=== PATIENT | female | born 1965 | race Caucasian/White ===

== ENCOUNTER 2019-07-02 21:01 | Inpatient (IN) | payer BC ==
--- NOTE | 2019-07-02 21:17 | PDOC ---
Rapid Medical Evaluation Chief Complaint: Pain Time Seen by Provider: 07/02/19 21:09 Medical Evaluation: Allergies Allergy/AdvReac Type Severity Reaction Status Date / Time No Known Allergies Allergy Verified 07/02/19 21:09 07/02/19 21:11 Pt presents to the ER for edema to her legs and abdomen. Pt has history of liver disease. Pt was recently hospitalized in [facility]. Exam: 4+ pitting edema to the legs b/l, fluid wave present in abdomen Orders: labs, IV, EKG Pt to proceed to the ER for further evaluation Discharge Disposition - Diagnosis Edema Qualifiers: Edema type: unspecified Qualified Code(s): R60.9 - Edema, unspecified - Referrals - Patient Instructions - Post Discharge Activity
[2019-07-02 21:52] LABS: BASO % 0.2 % (0-2.0); EOS % 0.3 % (0-4.5); HEMATOCRIT 25.6 % (32.4-45.2); HEMOGLOBIN 8.3 GM/dL (10.7-15.3); LYMPH % 12.9 % (8-40); MCH 36.2 pg (25.7-33.7); MCHC 32.2 g/dl (32.0-36.0); MEAN CELL VOLUME 112.5 fl (80-96); MEAN PLT VOLUME 7.8 fl (7.5-11.1); MONO % 7.7 % (3.8-10.2); NEUT % 78.9 % (42.8-82.8); PLATELET COUNT 395 K/MM3 (134-434); RBC 2.28 M/mm3 (3.60-5.2); RDW 18.3 % (11.6-15.6); WHITE BLOOD COUNT 15.8 K/mm3 (4.0-10.0)
[2019-07-02 22:08] LABS: INR 1.34 (0.83-1.09); PROTHROMBIN TIME (PATIENT) 15.9 SEC (9.7-13.0)
[2019-07-02 22:23] LABS: ANISOCYTOSIS 2+; MACROCYTOSIS 3+; PLATELET ESTIMATE ADEQUATE
[2019-07-02 22:25] LABS: ALK PHOS 356 U/L (45-117); ANION GAP 9 MMOL/L (8-16); BILIRUBIN,TOTAL 2.5 mg/dL (0.2-1); CHLORIDE 100 mmol/L (98-107); CO2 29 mmol/L (21-32); CREATININE 0.6 mg/dL (0.55-1.3); GLUCOSE,RANDOM 98 mg/dL (74-106); N-TERMINAL BNP 225.2 pg/ml (5-125); POTASSIUM 3.5 mmol/L (3.5-5.1); SGOT/AST 215 U/L (15-37); SGPT/ALT 33 U/L (13-61); SODIUM 137 mmol/L (136-145); TOT PROT 6.3 g/dl (6.4-8.2)
--- NOTE | 2019-07-03 01:05 | PDOC ---
Attending Attestation - Resident Resident Name: Ricardo Jacques - ED Attending Attestation I have performed the following: I have examined & evaluated the patient, The case was reviewed & discussed with the resident, I agree w/resident's findings & plan - HPI HPI: 07/03/19 01:04 see resident hpi - Physicial Exam PE: 07/03/19 01:04 agree with resident exam - Medical Decision Making 07/03/19 01:04 54-year-old female with history of alcoholic cirrhosis complaining of worsening lower extremity edema and generalized weakness Patient states that she is not able to ambulate without assistance We will admit for PT evaluation
--- NOTE | 2019-07-03 01:22 | PDOC ---
History of Present Illness - General Chief Complaint: Edema Stated Complaint: ABD PAIN Time Seen by Provider: 07/02/19 21:09 History Source: Patient Exam Limitations: No Limitations - History of Present Illness Initial Comments: 54 y/o female presenting to [facility] ER complaining of worsening lower extremity swelling and difficulty ambulating. Pt reports a history of worsening alcoholic cirrhosis. Was recently hospitalized at [facility], but pt is unable to recall the results of any testing. Unable to provide any documentation. Expressed extreme frustration and concern that she is no longer able to walk without assistance. Denies chest pain but endorses SOB w/o cough or wheeze. Denies drinking EtOH in last two weeks. Past History - Travel Traveled outside of the country in the last 30 days: No Close contact w/someone who was outside of country & ill: No - Past Medical History Allergies/Adverse Reactions: Allergies Allergy/AdvReac Type Severity Reaction Status Date / Time No Known Allergies Allergy Verified 07/02/19 21:09 Home Medications: Ambulatory Orders Doxepin HCl [Sinequan -] 25 mg PO DAILY 07/03/19 Folic Acid - 1 mg PO DAILY 07/03/19 Levothyroxine [Synthroid -] 50 mcg PO DAILY 07/03/19 Albuterol Sulfate Inhaler - [Ventolin HFA Inhaler -] 2 inh PO Q4H PRN #1 inh Furosemide [Lasix] 40 mg PO DAILY #30 tablet 07/08/19 Lactulose [Kristalose] 20 gm PO BID PRN #30 packet 07/08/19 Nicotine Patch [Nicoderm Patch -] 1 patch TD DAILY #30 patch 07/08/19 Spironolactone [Aldactone] 25 mg PO DAILY #30 tablet 07/08/19 Thiamine HCl [Vitamin B-1] 100 mg PO DAILY #30 tablet 07/08/19 Asthma: No Cardiac Disorders: No COPD: No Diabetes: No GI Disorders: No Disorders: No HTN: No Hypercholesterolemia: Yes (DIET CONTROLLED) Kidney Stones: No Liver Disease: Yes (Alcohol Cirrhosis) Psychiatric Problems: Yes (Alcohol Use Disorder) Seizures: No - Surgical History Abdominal Surgery: No Appendectomy: No Cardiac Surgery: No Cholecystectomy: No Lung Surgery: No Neurologic Surgery: No Orthopedic Surgery: Yes (RT. KNEE SURGERY - 20 YRS. AGO) - Psycho Social/Smoking Cessation Hx Smoking History: Current every day smoker Have you smoked in the past 12 months: Yes Number of Cigarettes Smoked Daily: 20 Information on smoking cessation initiated: No 'Breaking Loose' booklet given: 08/31/14 Hx Alcohol Use: No Drug/Substance Use Hx: No Substance Use Type: Alcohol, Cocaine, Marijuana Hx Substance Use Treatment: Yes Review of Systems - Review of Systems Comments:: 10 point review of systems completed. All systems negative except as noted above. *Physical Exam - Vital Signs Last Vital Signs Temp Pulse Resp BP Pulse Ox 98.4 F 113 H 18 129/62 95 07/02/19 21:09 07/02/19 21:09 07/02/19 21:09 07/02/19 21:09 07/02/19 21:09 - Physical Exam General Appearance: Yes: Appropriately Dressed. No: Apparent Distress HEENT: positive: Normal Voice Neck: positive: Trachea midline, Supple Respiratory/Chest: positive: Lungs Clear, Normal Breath Sounds. negative: Respiratory Distress Cardiovascular: positive: Regular Rhythm, Regular Rate. negative: Murmur Gastrointestinal/Abdominal: positive: Distended (Mildly distended w/ fluid wave. ). negative: Tender, Pulsatile Mass Extremity: positive: Pedal Edema (Bilateral lower extremity edema) Integumentary: positive: Normal Color, Dry, Warm Neurologic: positive: Fully Oriented, Alert, Normal Mood/Affect ED Treatment Course - LABORATORY CBC & Chemistry Diagram: 07/07/19 08:20 07/07/19 08:20 - ADDITIONAL ORDERS Additional order review: Laboratory Results 07/02/19 07/02/19 21:40 21:40 PT with INR 15.90 H INR 1.34 H Sodium 137 Potassium 3.5 Chloride 100 Carbon Dioxide 29 Anion Gap 9 BUN 5.0 L Creatinine 0.6 Est GFR (CKD-EPI)AfAm 118.93 Est GFR (CKD-EPI)NonAf 102.61 Random Glucose 98 Calcium 9.0 Total Bilirubin 2.5 H AST 215 H ALT 33 Alkaline Phosphatase 356 H B-Natriuretic Peptide 225.2 H Total Protein 6.3 L Albumin 2.0 L 07/02/19 21:40 RBC 2.28 L MCV 112.5 H MCHC 32.2 RDW 18.3 H MPV 7.8 Neutrophils % 78.9 Lymphocytes % 12.9 Monocytes % 7.7 Eosinophils % 0.3 Basophils % 0.2 Medical Decision Making - Medical Decision Making 54 y/o female presenting with worsening lower extremity edema and inability to ambulate without assistance. Occurring in setting of worsening alcoholic cirrhosis. Afebrile. Vitals remarkable for tachycardia without hypotension. Normoxic on room air. Physical exam as described above. Ordered placed by RME prior to my arrival. Reviewed laboratory data. Noted transaminitis with AST > ALT. Also noted leukocytosis. Will admit the pt for further medical evaluation and PT evaluation as pt states she is unable to perform her ADLs. Ricardo Jacques M.D., PGY2 Emergency Medicine Resident Discharge - Discharge Information Problems reviewed: Yes Clinical Impression/Diagnosis: Edema Qualifiers: Edema type: unspecified Qualified Code(s): R60.9 - Edema, unspecified Condition: Improved Disposition: HOME - Follow up/Referral - Patient Discharge Instructions - Post Discharge Activity
[2019-07-03] MEDS ORDERED: ALBUTEROL SO4 2.5/IPRATROPIUM 0.5 INH SOL 3 ML VIAL.NEB. NEB ONE ×3 (01:24→01:34)
--- NOTE | 2019-07-03 01:41 | PN ---
Teaching Attending Note Name of Resident: Billy Ratliff ATTENDING PHYSICIAN STATEMENT I saw and evaluated the patient. I reviewed the resident's note and discussed the case with the resident. I agree with the resident's findings and plan as documented. SUBJECTIVE: 54-year-old woman, first time in this hospital, with a history of alcoholic liver cirrhosis presenting complaining of worsening lower extremity edema and generalized weakness. Patient was unable to ambulate without the assistance. Patient was never cooperative with interview and physical exam when I saw her and most of history was obtained from EMR. OBJECTIVE: Last Vital Signs Temp Pulse Resp BP Pulse Ox 98.5 F 110 H 20 115/75 92 L 07/03/19 01:03 07/03/19 01:30 07/03/19 01:30 07/03/19 01:30 07/03/19 01:30 GENERAL: Well developed, well nourished. Awake and alert. No acute distress. HEENT: Normocephalic, atraumatic. PERRLA, EOMI. No conjunctival pallor. Sclera are non- icteric. Moist mucous membranes. NECK: Supple. Full ROM. No JVD. Carotid pulses 2+ and symmetric, without bruits. No thyromegaly. No lymphadenopathy. CARDIOVASCULAR: Regular rate and rhythm. No murmurs, rubs, or gallops. Distal pulses are 2+ and symmetric. PULMONARY: No evidence of respiratory distress. Lungs clear to auscultation bilaterally. No wheezing, rales or rhonchi. ABDOMINAL: Soft. Non-tender. Distended abdomen No rebound or guarding. No organomegaly. Normoactive bowel sounds. MUSCULOSKELETAL Normal range of motion at all joints. No bony deformities or tenderness. No CVA tenderness. EXTREMITIES: 3+ pitting edema up to knees bilaterally SKIN: Warm and dry. Normal capillary refill. No rashes. No jaundice. PSYCHIATRIC: Cooperative. Good eye contact. Appropriate mood and affect. Abnormal Lab Results 07/02/19 07/02/19 07/02/19 21:40 21:40 21:40 WBC 15.8 H RBC 2.28 L Hgb 8.3 L Hct 25.6 L D MCV 112.5 H MCH 36.2 H RDW 18.3 H Absolute Neuts (auto) 12.4 H PT with INR 15.90 H INR 1.34 H ABG pH ABG pO2 at Pt Temp ABG HCO3 ABG O2 Sat (Measured) ABG Base Excess BUN 5.0 L Total Bilirubin 2.5 H AST 215 H Alkaline Phosphatase 356 H B-Natriuretic Peptide 225.2 H Total Protein 6.3 L Albumin 2.0 L 07/03/19 03:05 WBC RBC Hgb Hct MCV MCH RDW Absolute Neuts (auto) PT with INR INR ABG pH 7.51 H ABG pO2 at Pt Temp 62.8 L ABG HCO3 28.3 H ABG O2 Sat (Measured) 91.7 L ABG Base Excess 5.3 H BUN Total Bilirubin AST Alkaline Phosphatase B-Natriuretic Peptide Total Protein Albumin Imaging studies reviewed ASSESSMENT AND PLAN: 54-year-old woman with anasarca, fluid overload suspected secondary to liver cirrhosis allegedly from alcohol abuse. Rule out other causes of anasarca such as nephrotic syndrome, CHF related causes. Bilateral pedal edema, should rule out DVT. Should treat for EtOH withdrawal. Should obtain medical records from PCP in the morning. Leukocytosis with suspected abdominal ascitesshould rule out SBP at this time. Hypoalbuminemia likely secondary to underlying liver failure. [facility] and [facility] precautions CT of abdomen pelvis Furosemide 40 mg IV stat and then 40 twice daily Ceftriaxone 1 g IV stat and daily IR for diagnostic and therapeutic paracentesis Avoid hepatotoxins Ramon catheter I's and O's and daily weights Free water and salt restriction Transthoracic echo Lower extremity duplex to rule out DVT Urine analysis EtOH level Urine toxicology screen Hepatitis B and C serologies Tylenol level [facility] protocol Thiamine and folate supplementation Lorazepam taper #Anemiasuspect might be secondary to chronic disease versus EtOH given her macrocytosis. Send iron studies, ferritin, vitamin B12, TSH #Leukocytosis Monitor CBC off antibiotics at this time #DVT prophylaxisheparin subcutaneously
[2019-07-03] MEDS ORDERED: FUROSEMIDE 40 MG/4 ML INJECTABLE VIAL IVPUSH ONE (02:25)
[2019-07-03] MEDS ORDERED: THIAMINE HCL 100 MG TABLET (FP) PO ONE (02:31)
[2019-07-03] MEDS ORDERED: FOLIC ACID 1 MG TABLET (FP) PO ONE (02:32)
--- NOTE | 2019-07-03 02:52 | HP ---
CHIEF COMPLAINT: Worsening LE edema, SOB, abdominal bloating, and fatigue for the pat 6 months PCP: None HISTORY OF PRESENT ILLNESS: This is a 54 year old female with PMH significant for Alcoholic Cirrhosis, GERD , and hypothyroidism. She presented to the ER with complaints of worsening LE edema resulting in an inability to walk, SOB, abdominal bloating, and fatigue for the past 6 months. She has been hospitalized approximately 4 times over the past 6 months at [facility], and states that she was diagnosed with liver cirrhosis. She has been drinking for several years (she is unable to quantify and states that she has been drinking forever), and her last drink was Jun 13 2019. Before then, she would usually drink over 1 pint of vodka per day. She endorses nausea, SOB, orthopnea, light headedness, but no vomiting, diarrhea , constipation, chest pain, abdominal pain, dysuria, urinary urgency, urinary frequency, or hematuria. She admits to multiple episodes of hemetemesis, but states that she has not had any episodes in the past 6 months. Her SOB has been worsening progressively, and she admits to snoring as well as waking up at night with SOB. She has never been officialy diagnosed with apnea. She also states that she has had multiple falls over the past few years due to being intoxicated, but reports no recent falls or head trauma. Her diet has been erratic, and she claims to have missed meals for up to 10 days at a time. She has attempted detox in the past, and was admitted at [facility] in 2015 for alcohol, cannabis, and cocaine use, although she denies any other drug use at this time. She smokes a 1/2 pack per day, down from 1.5 pack previously. She endorses intermittent chills over the past few weeks, without any documented or subjective fevers. She also endorses progressive worsening SOB and orthopnea. She does not remember if she has ever had an echo. She denies ever having an endoscopy or colonoscopy done, although she was scheduled to receive a colonoscopy a few years ago, but there was an error with her appointment. ER course was notable for: (1) WBC 15.8 (2) H&H 8.3/25.6 (3) Ceftriaxone and Lasix started Recent Travel: denies PAST MEDICAL HISTORY: As listed in HPI PAST SURGICAL HISTORY: Denies Social History: As listed in HPI Allergies No Known Allergies Allergy (Verified 07/02/19 21:09) HOME MEDICATIONS: REVIEW OF SYSTEMS CONSTITUTIONAL: chills Absent: fever, chills, diaphoresis, generalized weakness, malaise, loss of appetite, weight change HEENT: Absent: rhinorrhea, nasal congestion, throat pain, throat swelling, difficulty swallowing, mouth swelling, ear pain, eye pain, visual changes CARDIOVASCULAR: Absent: chest pain, syncope, palpitations, irregular heart rate, lightheadedness , peripheral edema RESPIRATORY: SOB Absent: cough, shortness of breath, dyspnea with exertion, orthopnea, wheezing, stridor, hemoptysis GASTROINTESTINAL: nausea, bloating Absent: abdominal pain, abdominal distension, nausea, vomiting, diarrhea, constipation, melena, hematochezia GENITOURINARY: Absent: dysuria, frequency, urgency, hesitancy, hematuria, flank pain, genital pain MUSCULOSKELETAL: Absent: myalgia, arthralgia, joint swelling, back pain, neck pain SKIN: Absent: rash, itching, pallor HEMATOLOGIC/IMMUNOLOGIC: Absent: easy bleeding, easy bruising, lymphadenopathy, frequent infections ENDOCRINE: Absent: unexplained weight gain, unexplained weight loss, heat intolerance, cold intolerance NEUROLOGIC: Absent: headache, focal weakness or paresthesias, dizziness, unsteady gait, seizure, mental status changes, bladder or bowel incontinence PSYCHIATRIC: Absent: anxiety, depression, suicidal or homicidal ideation, hallucinations. PHYSICAL EXAMINATION Vital Signs - 24 hr 07/02/19 07/03/19 21:09 01:30 Temperature 98.4 F Pulse Rate 113 H Pulse Rate [ 110 H Right Radial] Respiratory 18 20 Rate Blood Pressure 129/62 Blood Pressure 115/75 [Left Arm] O2 Sat by Pulse 95 92 L Oximetry (%) GENERAL: AOx3, jaundiced HEAD: Normal with no signs of trauma. EYES: Pupils equal, round and reactive to light, extraocular movements intact, sclera icteric, conjunctiva clear. No lid lag. EARS, NOSE, THROAT: Ears normal, nares patent, oropharynx clear without exudates. Moist mucous membranes. NECK: Normal range of motion, supple without lymphadenopathy, JVD, or masses. LUNGS: Breath sounds equal, clear to auscultation bilaterally. No wheezes, and no crackles. No accessory muscle use. HEART: Regular rate and rhythm, systolic murmur 3/6 on RSB ABDOMEN: Soft, distended, non tender with fluid thrill UPPER EXTREMITIES: 2+ pulses, warm, well-perfused. No cyanosis. No clubbing. No peripheral edema. LOWER EXTREMITIES: B/L pitting edema 2+, no calf tenderness NEUROLOGICAL: Patient refused motor/sensory examination/ Tremor noticed when hands outstretched PSYCHIATRIC: Cooperative. Good eye contact. Appropriate mood and affect. SKIN: Warm, dry, normal turgor, no rashes or lesions noted, normal capillary refill. Laboratory Results - last 24 hr 07/02/19 07/02/19 07/02/19 21:40 21:40 21:40 WBC 15.8 H RBC 2.28 L Hgb 8.3 L Hct 25.6 L D MCV 112.5 H MCH 36.2 H MCHC 32.2 RDW 18.3 H Plt Count 395 D MPV 7.8 Absolute Neuts (auto) 12.4 H Neutrophils % 78.9 Lymphocytes % 12.9 Monocytes % 7.7 Eosinophils % 0.3 Basophils % 0.2 Nucleated RBC % 0 Hypochromia 1+ Platelet Estimate Adequate Platelet Comment Large platelets Polychromasia 1+ Anisocytosis 2+ Macrocytosis 3+ PT with INR 15.90 H INR 1.34 H Sodium 137 Potassium 3.5 Chloride 100 Carbon Dioxide 29 Anion Gap 9 BUN 5.0 L Creatinine 0.6 Est GFR (CKD-EPI)AfAm 118.93 Est GFR (CKD-EPI)NonAf 102.61 Random Glucose 98 Calcium 9.0 Total Bilirubin 2.5 H AST 215 H ALT 33 Alkaline Phosphatase 356 H B-Natriuretic Peptide 225.2 H Total Protein 6.3 L Albumin 2.0 L ASSESSMENT/PLAN: 54 year old female with PMH significant for Alcoholic Cirrhosis, GERD, and hypothyroidism. She presented to the ER with complaints of worsening LE edema resulting in an inability to walk, SOB, abdominal bloating, and fatigue for the past 6 months. Admitted for management of alcoholic cirrhosis. #Cirrhosis - 2/2 significant alcohol use - Child Powell: Class C, 10 points, 82% scotty operative mortality - Rosalie's Discriminant Function: 15.8, good prognosis (under 32, does not require steroids at this time) - MELD 13 with 6% 3 month mortality - Manage ascites with Lasix 80mg given, Ramon placed for Is and Os, KCl IV 20meq IV and 30meq PO given, 1L fluid restriction /24 hours - GI consult placed with Dr. Nguyen - Must r/o SBP in setting of fever, paracentesis order placed, Dr. Mg consulted, - CT AP pending, Abdomen US ordered - Doppler lower extremity ordered - Tylenol and Alcohol level ordered - Hepatitis panel ordered - B12 levels ordered #Cardiac workup - Worsening dyspnea might be component of CHF - Troponin ordered - EKG: no ST T wave changes - Echo ordered to assess cardiac function - BNP ordered - Lasix IV 80mg once for worsening edema with 30meq IV Kcl to prevent potassium depletion from diuretic use #EtOH abuse - Ativan protocol started - Thiamine PO given, avoiding fluids due to edema #Sleep apnea - STOP BANG 3 points (loud snoring, stops breathing during sleep, age > 50 - May consider sleep testing on DC #Leukocytosis - WBC 15.8 - Must r/o SBP in setting of fever, paracentesis order placed, Dr. Mg consulted - Cefrtiaxone 1gm given prophylactically - Blood, urine cx ordered #Anemia - H&H: 8.3/25.6 - Fe TIBC levels ordered - RBC smear ordered - May need transfusion if Hg drops under 8 #FEN - Fluid restriction 1L per day - K repleted, will continue to monitor - Salt restricted diet #DVT - Heparin SQ Visit type - Emergency Visit Emergency Visit: Yes ED Registration Date: 07/03/19 Care time: The patient presented to the Emergency Department on the above date and was hospitalized for further evaluation of their emergent condition. - New Patient This patient is new to me today: Yes Date on this admission: 07/03/19 - Critical Care Critical Care patient: No ATTENDING PHYSICIAN STATEMENT I saw and evaluated the patient. I reviewed the resident's note and discussed the case with the resident. I agree with the resident's findings and plan as documented. SUBJECTIVE: OBJECTIVE: ASSESSMENT AND PLAN:
[2019-07-03] MEDS ORDERED: LORazepam 1 MG TABLET PO PRN (03:12)
[2019-07-03 03:31] LABS: ARTERIAL BLD GAS O2 SATURATION 91.7 % (95-98); ARTERIAL BLOOD GAS BASE EXCESS 5.3 meq/l (-2-2); ARTERIAL BLOOD GAS PCO2 35.5 mmHg (35-45); ARTERIAL BLOOD GAS PO2 62.8 mmHg (80-100); ARTERIAL BLOOD GAS pH 7.51 (7.35-7.45)
[2019-07-03 03:35] LABS: ALLENS TEST POSITIVE
[2019-07-03] MEDS: KCL 10 MEQ IVPB 10 MEQ/100 ML INFUS.BAG IVPB SCH ×3 (03:55→05:49)
[2019-07-03 04:16] VITALS: BMI 31.6
[2019-07-03] MEDS: LORazepam 1 MG TABLET PO SCH ×4 (04:55→22:02)
[2019-07-03 05:20] LABS: EPI CELLS 5.3 /HPF (0-5/HPF); HYALINE CASTS 19 /lpf (0-8); URINE APPEARANCE TURBID; URINE BACTERIA 3.1 /hpf (NEGATIVE); URINE BILIRUBIN 2+ (NEGATIVE); URINE COLOR ORANGE; URINE GLUCOSE (UA) NEGATIVE (NEGATIVE); URINE KETONE NEGATIVE (NEGATIVE); URINE LEUK ESTERASE TRACE (NEGATIVE); URINE NITRITE POSITIVE (NEGATIVE); URINE PROTEIN NEGATIVE (NEGATIVE); URINE RBC 2 /hpf (0-4); URINE WBC 1 /hpf (0-5)
[2019-07-03] MEDS ORDERED: POTASSIUM CHLORIDE TABS 20 MEQ TABLET.ER (FP) PO ONE (05:23)
[2019-07-03] MEDS ORDERED: CEFTRIAXONE 1 GM in DEXTROSE 5%-WATER - 50 ML IVPB ONE (05:54)
[2019-07-03 09:37] LABS: COCAINE, UR NEGATIVE ng/ml (CUTOFF=300); METHADONE, UR NEGATIVE ng/ml (CUTOFF=300); OPIATES, URI NEGATIVE ng/ml (CUTOFF=300); PHENCYCLIDINE,URINE NEGATIVE ng/ml (CUTOFF=25); URINE AMPHETAMINES NEGATIVE ng/ml (CUTOFF=500); URINE BARBITURATES NEGATIVE ng/ml (CUTOFF=200); URINE BENZODIAZEPINES NEGATIVE ng/ml (CUTOFF=200)
[2019-07-03 09:58] LABS: BASO % 0.4 % (0-2.0); EOS % 0.5 % (0-4.5); HEMOGLOBIN 7.8 GM/dL (10.7-15.3); LYMPH % 15.2 % (8-40); MCH 36.7 pg (25.7-33.7); MCHC 32.4 g/dl (32.0-36.0); MEAN CELL VOLUME 113.1 fl (80-96); MONO % 7.7 % (3.8-10.2); NEUT % 76.2 % (42.8-82.8); PLATELET COUNT 367 K/MM3 (134-434); RBC 2.12 M/mm3 (3.60-5.2); RDW 18.4 % (11.6-15.6); WHITE BLOOD COUNT 14.8 K/mm3 (4.0-10.0)
--- NOTE | 2019-07-03 10:26 | PN ---
Teaching Attending Note ATTENDING PHYSICIAN STATEMENT I saw and evaluated the patient. I reviewed the resident's note and discussed the case with the resident. I agree with the resident's findings and plan as documented. SUBJECTIVE: OBJECTIVE: ASSESSMENT AND PLAN:
[2019-07-03 10:35] LABS: ALBUMIN 1.8 g/dl (3.4-5.0); BILIRUBIN,TOTAL 2.5 mg/dL (0.2-1); BLOOD UREA NITROGEN 5.2 mg/dL (7-18); CALCIUM 8.9 mg/dL (8.5-10.1); CREATININE 0.6 mg/dL (0.55-1.3); POTASSIUM 3.6 mmol/L (3.5-5.1)
[2019-07-03 10:53] LABS: IRON SERUM 18 ug/dL (50-175); TOTAL IRON BINDING CAPACITY 174 ug/dL (250-450)
[2019-07-03] MEDS ORDERED: CEFTRIAXONE 2 GM in DEXTROSE 5%-WATER 100 ML IVPB ONE (11:15)
--- NOTE | 2019-07-03 12:30 | PN ---
Physical Exam: SUBJECTIVE: Patient seen and examined at bedside. Pt tachy and hypoxic likely due to pulse ox not getting a read from all the edema. Pt asymptomatic no sob, cp, walks to bathroom but unstable gait 2/2 edema. OBJECTIVE: Vital Signs Period Temp Pulse Resp BP Sys/Cortez Pulse Ox Last 24 Hr 98.4 F-98.5 F 109-113 18-20 105-129/59-75 92-95 GENERAL: The patient is awake, alert, and fully oriented, in no acute distress. LUNGS: Breath sounds equal, clear to auscultation bilaterally, no wheezes, no accessory muscle use. HEART: Tachycardic 110 and regular rhythm, S1, S2 without murmur, rub or gallop. ABDOMEN: Soft, globose, positive fluid wave. EXTREMITIES: 2+ pulses, warm, well-perfused, no edema. NEUROLOGICAL: Cranial nerves II through XII grossly intact. Normal speech, gait not observed. PSYCH: Normal mood, normal affect. SKIN: Warm, dry, normal turgor, no rashes or lesions noted Laboratory Results - last 24 hr 07/02/19 07/02/19 07/02/19 21:40 21:40 21:40 WBC 15.8 H RBC 2.28 L Hgb 8.3 L Hct 25.6 L D MCV 112.5 H MCH 36.2 H MCHC 32.2 RDW 18.3 H Plt Count 395 D MPV 7.8 Absolute Neuts (auto) 12.4 H Neutrophils % 78.9 Lymphocytes % 12.9 Monocytes % 7.7 Eosinophils % 0.3 Basophils % 0.2 Nucleated RBC % 0 Hypochromia 1+ Platelet Estimate Adequate Platelet Comment Large platelets Polychromasia 1+ Anisocytosis 2+ Macrocytosis 3+ Retic Count PT with INR 15.90 H INR 1.34 H Anticoagulation Therapy Puncture Site ABG pH ABG pCO2 at Pt Temp ABG pO2 at Pt Temp ABG HCO3 ABG O2 Sat (Measured) ABG O2 Content ABG Base Excess Eldon Test O2 Delivery Device Oxygen Flow Rate Vent Mode Vent Rate Mechanical Rate Pressure Support Vent Sodium 137 Potassium 3.5 Chloride 100 Carbon Dioxide 29 Anion Gap 9 BUN 5.0 L Creatinine 0.6 Est GFR (CKD-EPI)AfAm 118.93 Est GFR (CKD-EPI)NonAf 102.61 Random Glucose 98 Calcium 9.0 Iron TIBC Iron Saturation Unsaturated IBC Total Bilirubin 2.5 H AST 215 H ALT 33 Alkaline Phosphatase 356 H Creatine Kinase 14 L Troponin I < 0.02 B-Natriuretic Peptide 225.2 H Total Protein 6.3 L Albumin 2.0 L Vitamin B12 Urine Color Urine Appearance Urine pH Ur Specific [place] Urine Protein Urine Glucose (UA) Urine Ketones Urine Blood Urine Nitrite Urine Bilirubin Urine Urobilinogen Ur Leukocyte Esterase Urine WBC (Auto) Urine RBC (Auto) Urine Casts (Auto) U Epithel Cells (Auto) Urine Bacteria (Auto) Opiates Screen Methadone Screen Barbiturate Screen Phencyclidine Screen Ur Amphetamines Screen MDMA (Ecstasy) Screen Benzodiazepines Screen Cocaine Screen U Marijuana (THC) Screen Alcohol, Quantitative 07/03/19 07/03/19 07/03/19 03:05 03:45 03:45 WBC RBC Hgb Hct MCV MCH MCHC RDW Plt Count MPV Absolute Neuts (auto) Neutrophils % Lymphocytes % Monocytes % Eosinophils % Basophils % Nucleated RBC % Hypochromia Platelet Estimate Platelet Comment Polychromasia Anisocytosis Macrocytosis Retic Count PT with INR INR Anticoagulation Therapy No Result Required. Puncture Site Right radial ABG pH 7.51 H ABG pCO2 at Pt Temp 35.5 ABG pO2 at Pt Temp 62.8 L ABG HCO3 28.3 H ABG O2 Sat (Measured) 91.7 L ABG O2 Content 9.5 ABG Base Excess 5.3 H Eldon Test Positive O2 Delivery Device Room air Oxygen Flow Rate No Result Required. Vent Mode No Result Required. Vent Rate No Result Required. Mechanical Rate No Result Required. Pressure Support Vent No Result Required. Sodium Potassium Chloride Carbon Dioxide Anion Gap BUN Creatinine Est GFR (CKD-EPI)AfAm Est GFR (CKD-EPI)NonAf Random Glucose Calcium Iron TIBC Iron Saturation Unsaturated IBC Total Bilirubin AST ALT Alkaline Phosphatase Creatine Kinase Troponin I B-Natriuretic Peptide Total Protein Albumin Vitamin B12 Urine Color [place] Urine Appearance Turbid Urine pH 5.0 Ur Specific Ravena 1.019 Urine Protein Negative Urine Glucose (UA) Negative Urine Ketones Negative Urine Blood Negative Urine Nitrite Positive H Urine Bilirubin 2+ H Urine Urobilinogen 1.0 Ur Leukocyte Esterase Trace Urine WBC (Auto) 1 Urine RBC (Auto) 2 Urine Casts (Auto) 19 U Epithel Cells (Auto) 5.3 Urine Bacteria (Auto) 3.1 Opiates Screen Methadone Screen Barbiturate Screen Phencyclidine Screen Ur Amphetamines Screen MDMA (Ecstasy) Screen Benzodiazepines Screen Cocaine Screen U Marijuana (THC) Screen Alcohol, Quantitative < 3 Active Medications Generic Name Dose Route Start Last Admin Trade Name Freq PRN Reason Stop Dose Admin Folic Acid 1 mg 07/03/19 10:45 Folic Acid - PO DAILY [facility] Furosemide 40 mg 07/03/19 10:45 Lasix Injection - IVPUSH DAILY [facility] Lorazepam 2 mg 07/03/19 05:00 07/03/19 04:55 Ativan - PO 07/03/19 23:01 2 mg 0500,1100,1700,2300 RODRIGO Administration Lorazepam 0.5 mg 07/05/19 05:00 Ativan - PO 07/05/19 23:01 Q6H RODRIGO Lorazepam 0.5 mg 07/05/19 00:00 Ativan - PO 07/06/19 00:00 Q4H PRN Symptoms of Withdrawal Lorazepam 0.5 mg 07/06/19 05:00 Ativan - PO 07/06/19 05:01 ONCE ONE Lorazepam 1 mg 07/04/19 05:00 Ativan - PO 07/04/19 23:01 0500,1100,1700,2300 RODRIGO Lorazepam 1 mg 07/03/19 03:12 Ativan - PO 07/05/19 00:00 Q4H PRN Symptoms of Withdrawal Pantoprazole Sodium 40 mg 07/03/19 10:45 Protonix Iv IVPUSH DAILY [facility] Propranolol HCl 10 mg 07/03/19 10:45 Inderal - PO TID [facility] Spironolactone 12.5 mg 07/03/19 10:45 Aldactone - PO DAILY [facility] Thiamine HCl 100 mg 07/03/19 10:45 Vitamin B1 - PO DAILY [facility] ASSESSMENT/PLAN: 54 year old female with PMH significant for Alcoholic Cirrhosis, GERD, and hypothyroidism. She presented to the ER with complaints of worsening LE edema resulting in an inability to walk, SOB, abdominal bloating, and fatigue for the past 6 months. Admitted for management of alcoholic cirrhosis. #Alcoholic liver Cirrhosis - 2/2 alcohol abuse - Child Powell: Class C, 10 points, 82% scotty operative mortality - Maddrey's Discriminant Function: 15.8, suggesting no need for steroids - MELD 13 with 6% 3 month mortality - Manage ascites with Lasix 40mg IVP daily, 12.5 aldactone now, and propanolol 10TID for portal HTN reduction - Lactulose 20BID for HE mgmt, MRI triphasic abdomen for ?polyp in GB per GI - pt should follow up in liver transplant center. - d/c Ramon - aldactone 100 daily (per GI but order has not been put in yet) should help improve the hypokalemia as well. - GI consult placed with Dr. Nguyen for assesment of anemia which is chronic given iron studies and pt has hx of hematemsis will need EGD to r/o varices and stool occult for blood and rectal exam showing brown stool, BUN low could be due to malnourishment (will order pre-albumin to assess) vs dehydration but low likelihood for upper GI bleed at this time. - Protonix 40 daily - d/c'd rocephin 2g daily given SBP ruled out - ammonia level, pre-albumin, folate, thiamine - Doppler lower extremity negative - Hepatitis panel ordered - B12 levels high which is not characteristic of alcoholic cirrhosis but was recently at [facility] and potentially received treatment there. #Cardiac workup - Worsening dyspnea might be component of CHF - Troponin ordered - EKG: no ST T wave changes - Echo ordered to assess cardiac function - BNP ordered - Lasix IV 80mg once for worsening edema with 30meq IV Kcl to prevent potassium depletion from diuretic use #EtOH abuse - Ativan protocol started - Thiamine PO given, avoiding fluids due to edema #Sleep apnea - STOP BANG 3 points (loud snoring, stops breathing during sleep, age > 50 - May consider sleep testing on DC #Leukocytosis - WBC 15.8 - Must r/o SBP in setting of fever, paracentesis order placed, Dr. Mg consulted - Cefrtiaxone 1gm given prophylactically - Blood, urine cx ordered #Anemia - H&H: 8.3/25.6 - Fe TIBC levels ordered - RBC smear ordered - May need transfusion if Hg drops under 8 #FEN - Fluid restriction 1L per day - K repleted, will continue to monitor - Salt restricted diet #DVT - SCD'S in setting of ?bleed Visit type - Emergency Visit Emergency Visit: Yes ED Registration Date: 07/03/19 Care time: The patient presented to the Emergency Department on the above date and was hospitalized for further evaluation of their emergent condition. - New Patient This patient is new to me today: Yes Date on this admission: 07/04/19 - Critical Care Critical Care patient: No - Discharge Referral Referred to [facility] No ATTENDING PHYSICIAN STATEMENT I saw and evaluated the patient. I reviewed the resident's note and discussed the case with the resident. I agree with the resident's findings and plan as documented. SUBJECTIVE: OBJECTIVE: ASSESSMENT AND PLAN:
[2019-07-03] MEDS ORDERED: DEXTROSE 5%-WATER 100 ML IVPB ONE (13:06)
[2019-07-03] MEDS ORDERED: PT OWN MED DRAWER 7, Y5N ONE (13:07)
[2019-07-03] MEDS: FUROSEMIDE 40 MG/4 ML INJECTABLE VIAL IVPUSH SCH (13:12)
[2019-07-03] MEDS: PANTOPRAZOLE SODIUM 40 MG VIAL IVPUSH SCH (13:12)
[2019-07-03] MEDS: FOLIC ACID 1 MG TABLET (FP) PO SCH (13:13)
[2019-07-03] MEDS: SPIRONOLACTONE 25 MG TABLET (FP) PO SCH (13:13)
[2019-07-03] MEDS: THIAMINE HCL 100 MG TABLET (FP) PO SCH (13:14)
[2019-07-03] MEDS ORDERED: HEPARIN NA (PORCINE) 5,000 UNITS/ML 1ML VIAL SQ SCH (14:00)
--- NOTE | 2019-07-03 14:01 | ECHO ---
Name: RIVER DEL ANGEL Exam:Adult Echocardiogram Study Date: 07/03/2019 10:15 AM Age: 54 yrs Height: 61 in Weight: 170 lb BSA: 1.8 m2 MMode/2D Measurements & Calculations IVSd: 0.84 cm Ao root diam: 3.2 cm LVIDd: 4.2 cm LA dimension: 3.7 cm LVIDs: 3.1 cm ACS: 1.9 cm LVPWd: 1.2 cm EDV(Teich): 79.7 ml LVOT diam: 2.1 cm ESV(Teich): 36.5 ml Doppler Measurements & Calculations MV E max tung: 122.8 cm/sec Ao V2 max: 181.3 cm/sec MV A max tung: 116.6 cm/sec Ao max P.2 mmHg MV E/A: 1.1 Ao V2 mean: 130.8 cm/sec MV dec time: 0.18 sec Ao mean P.8 mmHg Ao V2 VTI: 35.9 cm MAIRA(I,D): 2.6 cm2 MAIRA(V,D): 2.6 cm2 LV V1 max P.2 mmHg SV(LVOT): 93.5 ml LV V1 mean P.1 mmHg LV V1 max: 133.9 cm/sec LV V1 mean: 94.9 cm/sec LV V1 VTI: 27.1 cm TR max tung: 225.8 cm/sec PA V2 max: 103.0 cm/sec TR max P.3 mmHg PA max P.2 mmHg PI end-d tung: 99.5 cm/sec Med Peak E' Tung: 7.3 cm/sec Med E/e': 16.8 Lat Peak E' Tung: 6.9 cm/sec Lat E/e': 17.7 Procedure A complete two-dimensional transthoracic echocardiogram was performed (2D, M-mode, Doppler and color flow Doppler). Left Ventricle The left ventricular size, thickness and function are normal. The left ventricular ejection fraction is normal. Ejection Fraction = 60-65%. The left ventricular wall motion is normal. Right Ventricle The right ventricle is normal in size and function. Atria Normal left and right atrial size and function. Mitral Valve There is no mitral regurgitation noted. Tricuspid Valve There is trace tricuspid regurgitation. There was insufficient TR detected to calculate RV systolic p ressure. Aortic Valve No hemodynamically significant valvular aortic stenosis. No aortic regurgitation is present. Pulmonic Valve There is no pulmonic valvular regurgitation. Great Vessels The aortic root is normal size. Pericardium/Pleura There is no pericardial effusion. Interpretation Summary The left ventricular size, thickness and function are normal The right ventricle is normal in size and function. There is trace tricuspid regurgitation. MD Westley Sage 07/03/2019 02:00 PM
--- NOTE | 2019-07-03 14:04 | CON.GI ---
Consult Consult Specialty:: GI Referred by:: Hospitalist Service Reason for Consultation:: Ascites - History of Present Illness Chief Complaint: "I was bloated up and couldn't walk" History of Present Illness: 54F admitted for evaluation of volume overload. Is an active alcoholic (last drink 1/3 per the patient). She drinks on average 1.5+ pints of alcohol daily. Has been to [facility] and most recently [facility]. There she had a paracentesis, possibly a month ago. She does not follow-up in terms of her medical care as an outpatient. She currently states that she is tired and would like to sleep without being interrupted. She denies abdominal pain, nausea, vomiting, rectal bleeding, melena. She has never had an EGD or colonoscopy. Her sister had liver disease from alcoholism and . There is no family history of colon cancer. - History Source History Provided By: Patient, Medical Record - Past Medical History Hepatobiliary: Yes: Cirrhosis (Alcohol induced) ...: No Psych: Yes: Addictions (Alcohol) Endocrine: Yes: Hypothyroidism Additional Medical History: Patient denies but did have admission medication list - Past Surgical History Past Surgical History: Yes: Joint Replacement (B/L THR, B/L knee surgery) Additional Surgical History: BTL - Alcohol/Substance Use Hx Alcohol Use: Yes History of Substance Use: reports: Cocaine (ex intranasal cocaine and smoked crack cocaine) - Smoking History Smoking history: Current every day smoker Have you smoked in the past 12 months: Yes Aproximately how many cigarettes per day: 20 - Social History Usual Living Arrangement: Alone ADL: Independent Occupation: Unemplyed Place of : [facility] History of Recent Travel: No Home Medications - Allergies Allergies/Adverse Reactions: Allergies Allergy/AdvReac Type Severity Reaction Status Date / Time No Known Allergies Allergy Verified 07/02/19 21:09 - Home Medications Home Medications: Ambulatory Orders Doxepin HCl [Sinequan -] 25 mg PO DAILY 07/03/19 Folic Acid - 1 mg PO DAILY 07/03/19 Levothyroxine [Synthroid -] 50 mcg PO DAILY 07/03/19 Nitrofurantoin Monohyd/M-Cryst [Macrobid -] 100 mg PO BID 07/03/19 Physical Exam-GI Vital Signs: Vital Signs Temperature 98.9 F 07/03/19 13:55 Pulse Rate 98 H 07/03/19 13:55 Respiratory Rate 20 07/03/19 13:55 Blood Pressure 107/54 L 07/03/19 13:55 O2 Sat by Pulse Oximetry (%) 92 L 07/03/19 01:30 Constitutional: Yes: Calm Eyes: No: Sclera Icterus Cardiovascular: Yes: Regular Rate and Rhythm. No: Murmur Respiratory: Yes: Diminished (at bases bilaterally with poor insp effort) Gastrointestinal Inspection: Yes: Distention ...Auscultate: Yes: Normoactive Bowel Sounds ...Palpate: Yes: Hepatomegaly, Soft. No: Tenderness ...Percussion: No: Tympanitic Edema: Yes (B/L LE edema) Neurological: Yes: Alert, Other (Somnolent) Labs: CBC, BMP 07/03/19 08:35 07/03/19 08:35 INR, PTT INR 1.34 (0.83-1.09) H 07/02/19 21:40 Problem List - Problems (1) Alcoholic cirrhosis of liver with ascites Assessment/Plan: In setting of active etoh abuse: Advise: Await fluid analysis. If no evidence of SBP D/C Abx Screening hepatitis A and B serologies (Hepatitis A/B panel) and hepatitis C antibody. If serologies not suggestive of immunity to hepatitis B, will need vaccination. Advised need for strict alcohol cessation. Explained that she will need to begin to take an active role in her medical care an responsibility for current medical issues. Explained if she continues to drink, she will likely from her continued alcohol use. Evaluation at liver transplant center as outpatient when acute issues are resolved Medication complaince: Start Lasix 40mg daily and Aldactone 100mg daily. 2g sodium controlled diet EGD and colonoscopy as outpatient Will need Q 6 month hepatic US to screen for HCC ? of polypoid lesion vs. sludge ball in GB on US. Follow-up with MRI. Can obtain MRI of abdomen with and without contrast (triple phase) Added Lactulose 20g BID for now. Code(s): K70.31 - ALCOHOLIC CIRRHOSIS OF LIVER WITH ASCITES
[2019-07-03] MEDS: LACTULOSE 20 GM/30 ML UDC (FOR ORAL USE ONLY) PO SCH ×2 (14:51→22:02)
--- NOTE | 2019-07-03 15:10 | EKG ---
Test Reason : Blood Pressure : / mmHG Vent. Rate : 103 BPM Atrial Rate : 103 BPM P-R Int : 150 ms QRS Dur : 082 ms QT Int : 358 ms P-R-T Axes : 062 014 064 degrees QTc Int : 468 ms SINUS TACHYCARDIA POSSIBLE LEFT ATRIAL ENLARGEMENT LOW VOLTAGE QRS CANNOT RULE OUT ANTEROSEPTAL INFARCT , AGE UNDETERMINED ABNORMAL ECG NO PREVIOUS ECGS AVAILABLE Confirmed by SEAMUS HER MD ([id number]) on 07/03/2019 3:10:03 PM Referred By: Confirmed By:SEAMUS HER MD
[2019-07-03 15:23] LABS: BF WBC & OTHER NUCLEATED CELLS 169 /mm3; BODY FLUID MACROPHAGES 47 %; BODY FLUID MESOTHELIAL 34 %
[2019-07-03] MEDS: NICOTINE 7 MG/24 HOURS TOPICAL PATCH TD SCH (22:52)
[2019-07-04] MEDS: LORazepam 1 MG TABLET PO SCH ×3 (06:38→23:33)
--- NOTE | 2019-07-04 07:08 | PN ---
Physical Exam: SUBJECTIVE: Patient seen and examined. Mental status worsened since yesterday. Pt AO X2. OBJECTIVE: Vital Signs Period Temp Pulse Resp BP Sys/Cortez Pulse Ox Last 24 Hr 98.3 F-100.3 F 87-98 - 100-123/45-54 90-92 GENERAL: The patient is awake, alert, and fully oriented, in no acute distress. NECK: supple. LUNGS: Breath sounds equal, clear to auscultation bilaterally, no wheezes, no crackles, no accessory muscle use. HEART: Regular rate and rhythm, S1, S2 without murmur, rub or gallop. ABDOMEN: Soft, nontender, globose EXTREMITIES: 2+ pulses, warm, well-perfused, 2+ pitting edema. NEUROLOGICAL: Cranial nerves II through XII grossly intact. Normal speech, gait not observed. PSYCH: poor affect, reduced mental status, responsive to commands and questions but at reduced haste. SKIN: Warm, dry, no rashes or lesions noted Laboratory Results - last 24 hr 07/03/19 07/03/19 07/03/19 03:45 07:00 08:35 WBC 14.8 H RBC 2.12 L Hgb 7.8 L Hct 24.0 L MCV 113.1 H MCH 36.7 H MCHC 32.4 RDW 18.4 H Plt Count 367 MPV 8.0 Absolute Neuts (auto) 11.2 H Neutrophils % 76.2 Lymphocytes % 15.2 Monocytes % 7.7 Eosinophils % 0.5 Basophils % 0.4 Nucleated RBC % 0 Retic Count Sodium Potassium Chloride Carbon Dioxide Anion Gap BUN Creatinine Est GFR (CKD-EPI)AfAm Est GFR (CKD-EPI)NonAf Random Glucose Calcium Iron TIBC Iron Saturation Unsaturated IBC Total Bilirubin AST ALT Alkaline Phosphatase Ammonia Total Protein Albumin Vitamin B12 U Pathogenic Cast Auto None seen Fluid Source Fluid WBC Fluid RBC Fluid Neutrophils Fluid Lymphocytes Pleural Macrophages Pleural Mesothelial Stool Occult Blood Opiates Screen Negative Methadone Screen Negative Acetaminophen Barbiturate Screen Negative Phencyclidine Screen Negative Ur Amphetamines Screen Negative MDMA (Ecstasy) Screen Negative Benzodiazepines Screen Negative Cocaine Screen Negative U Marijuana (THC) Screen Negative Hep C Ab Diagnostic 07/03/19 07/03/19 07/03/19 08:35 08:35 08:35 WBC RBC Hgb Hct MCV MCH MCHC RDW Plt Count MPV Absolute Neuts (auto) Neutrophils % Lymphocytes % Monocytes % Eosinophils % Basophils % Nucleated RBC % Retic Count 4.44 H Sodium 137 Potassium 3.6 Chloride 98 Carbon Dioxide 30 Anion Gap 9 BUN 5.2 L Creatinine 0.6 Est GFR (CKD-EPI)AfAm 118.93 Est GFR (CKD-EPI)NonAf 102.61 Random Glucose 75 Calcium 8.9 Iron 18 L TIBC 174 L Iron Saturation 10 L Unsaturated IBC 156 L Total Bilirubin 2.5 H AST 199 H ALT 31 Alkaline Phosphatase 314 H Ammonia Total Protein 6.0 L Albumin 1.8 L Vitamin B12 1014 H U Pathogenic Cast Auto Fluid Source Fluid WBC Fluid RBC Fluid Neutrophils Fluid Lymphocytes Pleural Macrophages Pleural Mesothelial Stool Occult Blood Opiates Screen Methadone Screen Acetaminophen Barbiturate Screen Phencyclidine Screen Ur Amphetamines Screen MDMA (Ecstasy) Screen Benzodiazepines Screen Cocaine Screen U Marijuana (THC) Screen Hep C Ab Diagnostic 07/03/19 07/03/19 07/03/19 11:50 12:48 12:48 WBC RBC Hgb Hct MCV MCH MCHC RDW Plt Count MPV Absolute Neuts (auto) Neutrophils % Lymphocytes % Monocytes % Eosinophils % Basophils % Nucleated RBC % Retic Count Sodium Potassium Chloride Carbon Dioxide Anion Gap BUN Creatinine Est GFR (CKD-EPI)AfAm Est GFR (CKD-EPI)NonAf Random Glucose Calcium Iron TIBC Iron Saturation Unsaturated IBC Total Bilirubin AST ALT Alkaline Phosphatase Ammonia Total Protein Albumin Vitamin B12 U Pathogenic Cast Auto Fluid Source Peritoneal Fluid WBC 169 Fluid RBC 604 Fluid Neutrophils 2 Fluid Lymphocytes 17 Pleural Macrophages 47 Pleural Mesothelial 34 Stool Occult Blood Opiates Screen Methadone Screen Acetaminophen <2.0 Barbiturate Screen Phencyclidine Screen Ur Amphetamines Screen MDMA (Ecstasy) Screen Benzodiazepines Screen Cocaine Screen U Marijuana (THC) Screen Hep C Ab Diagnostic <0.1 07/03/19 07/03/19 12:48 13:00 WBC RBC Hgb Hct MCV MCH MCHC RDW Plt Count MPV Absolute Neuts (auto) Neutrophils % Lymphocytes % Monocytes % Eosinophils % Basophils % Nucleated RBC % Retic Count Sodium Potassium Chloride Carbon Dioxide Anion Gap BUN Creatinine Est GFR (CKD-EPI)AfAm Est GFR (CKD-EPI)NonAf Random Glucose Calcium Iron TIBC Iron Saturation Unsaturated IBC Total Bilirubin AST ALT Alkaline Phosphatase Ammonia 17.30 Total Protein Albumin Vitamin B12 U Pathogenic Cast Auto Fluid Source Fluid WBC Fluid RBC Fluid Neutrophils Fluid Lymphocytes Pleural Macrophages Pleural Mesothelial Stool Occult Blood Negative Opiates Screen Methadone Screen Acetaminophen Barbiturate Screen Phencyclidine Screen Ur Amphetamines Screen MDMA (Ecstasy) Screen Benzodiazepines Screen Cocaine Screen U Marijuana (THC) Screen Hep C Ab Diagnostic Active Medications Generic Name Dose Route Start Last Admin Trade Name Freq PRN Reason Stop Dose Admin Folic Acid 1 mg 07/03/19 10:45 07/03/19 13:13 Folic Acid - PO 1 mg DAILY RODRIGO Administration Furosemide 40 mg 07/03/19 10:45 07/03/19 13:12 Lasix Injection - IVPUSH 40 mg DAILY RODRIGO Administration Lactulose 20 gm 07/03/19 14:15 07/03/19 22:02 Cephulac (Oral Use) PO 20 gm BID RODRIGO Administration Lorazepam 0.5 mg 07/05/19 05:00 Ativan - PO 07/05/19 23:01 Q6H RODRIGO Lorazepam 0.5 mg 07/05/19 00:00 Ativan - PO 07/06/19 00:00 Q4H PRN Symptoms of Withdrawal Lorazepam 0.5 mg 07/06/19 05:00 Ativan - PO 07/06/19 05:01 ONCE ONE Lorazepam 1 mg 07/04/19 05:00 07/04/19 06:38 Ativan - PO 07/04/19 23:01 1 mg 0500,1100,1700,2300 RODRIGO Administration Lorazepam 1 mg 07/03/19 03:12 Ativan - PO 07/05/19 00:00 Q4H PRN Symptoms of Withdrawal Nicotine 7 mg 07/03/19 22:49 07/03/19 22:52 Nicoderm Patch - TD 7 mg DAILY RODRIGO Administration Pantoprazole Sodium 40 mg 07/03/19 10:45 07/03/19 13:12 Protonix Iv IVPUSH 40 mg DAILY RODRIGO Administration Propranolol HCl 10 mg 07/03/19 10:45 07/04/19 06:38 Inderal - PO 10 mg TID RODRIGO Administration Spironolactone 12.5 mg 07/03/19 10:45 07/03/19 13:13 Aldactone - PO 12.5 mg DAILY RODRIGO Administration Thiamine HCl 100 mg 07/03/19 10:45 07/03/19 13:14 Vitamin B1 - PO 100 mg DAILY RODRIGO Administration ASSESSMENT/PLAN: 54 year old female with PMH significant for Alcoholic Cirrhosis, GERD, and hypothyroidism. She presented to the ER with complaints of worsening LE edema resulting in an inability to walk, SOB, abdominal bloating, and fatigue for the past 6 months. Admitted for management of alcoholic cirrhosis. #Alcoholic liver Cirrhosis - 2/2 alcohol abuse - Child Powell: Class C, 10 points, 82% scotty operative mortality - Maddrey's Discriminant Function: 15.8, suggesting no need for steroids - MELD 13 with 6% 3 month mortality - Manage ascites with Lasix 40mg IVP daily, 12.5 aldactone now, and propanolol 10TID for portal HTN reduction - Lactulose 20BID for HE mgmt, MRI triphasic abdomen for ?polyp in GB per GI - pt should follow up in liver transplant center. - d/c Ramon - aldactone 100 daily (per GI but order has not been put in yet) should help improve the hypokalemia as well. - GI consult placed with Dr. Luke for assesment of anemia and pt has hx of hematemsis will need EGD to r/o varices and stool occult for blood and rectal exam showing brown stool, BUN low could be due to malnourishment (will order pre -albumin to assess) vs dehydration. - EGD as o/p per GI. - Protonix 40 daily - d/c'd rocephin 2g daily given SBP ruled out - ammonia level, pre-albumin, folate, thiamine - Doppler lower extremity negative - Hepatitis panel ordered - B12 levels high which is not characteristic of alcoholic cirrhosis but was recently at [facility] and potentially received treatment there. Acute mental status changes - Neuro consulted (Haley)- agrees with CT head to assess structural abnormality - ammonia level - hypoxia pulm consulted to keep SaO2 >90% - wbc 17 today increased from yesterday - UA cx growing group D strep - placed on levaquin for ? urosepsis management. #Cardiac workup - no longer dyspneic - Echo- normal EF 60-65% no valvular abnormalities - Troponin ordered - EKG: no ST T wave changes - Lasix IV 80mg once for worsening edema with aldactone to improve K and diurese better. #EtOH abuse - Ativan protocol started - Thiamine PO given, avoiding fluids due to edema #Leukocytosis - WBC 17.8 - SBP ruled out - Blood, urine cx group d strep to date #Anemia - H&H: 8.3->7.3 - Fe TIBC levels showing anemia of chronic dx - RBC smear ordered - May need transfusion if Hg drops under 7 #FEN - Fluid restriction 1L per day - K repleted, will continue to monitor - 2g Salt restricted diet #DVT - SCD'S in setting of ?bleed Visit type - Emergency Visit Emergency Visit: Yes ED Registration Date: 07/03/19 Care time: The patient presented to the Emergency Department on the above date and was hospitalized for further evaluation of their emergent condition. - New Patient This patient is new to me today: No - Critical Care Critical Care patient: No - Discharge Referral Referred to [facility] Med P.C.: No ATTENDING PHYSICIAN STATEMENT I saw and evaluated the patient. I reviewed the resident's note and discussed the case with the resident. I agree with the resident's findings and plan as documented. SUBJECTIVE: OBJECTIVE: ASSESSMENT AND PLAN:
[2019-07-04] MEDS ORDERED: INSULIN (NOVOLOG) ASPART 100 UNITS/ML 10ML VIAL ONE (07:30)
[2019-07-04] MEDS ORDERED: INSULIN (LEVEMIR) 100 UNITS/ML UNITS SQ ONE (07:30)
[2019-07-04 08:06] LABS: EOS % 0.7 % (0-4.5); HEMATOCRIT 26.8 % (32.4-45.2); HEMOGLOBIN 8.7 GM/dL (10.7-15.3); LYMPH % 14.5 % (8-40); MCH 36.7 pg (25.7-33.7); MCHC 32.4 g/dl (32.0-36.0); MEAN PLT VOLUME 8.1 fl (7.5-11.1); MONO % 6.2 % (3.8-10.2); NEUT % 77.6 % (42.8-82.8); PLATELET COUNT 425 K/MM3 (134-434); RBC 2.37 M/mm3 (3.60-5.2); RDW 17.8 % (11.6-15.6); WHITE BLOOD COUNT 17.4 K/mm3 (4.0-10.0)
[2019-07-04 08:39] LABS: ALBUMIN 1.7 g/dl (3.4-5.0); ALBUMIN 1.8 g/dl (3.4-5.0); BILIRUBIN,TOTAL 2.6 mg/dL (0.2-1); BLOOD UREA NITROGEN 9.1 mg/dL (7-18); CALCIUM 8.9 mg/dL (8.5-10.1); CREATININE 0.6 mg/dL (0.55-1.3); POTASSIUM 3.7 mmol/L (3.5-5.1); PREALBUMIN 3.4 mg/dl (20-40); TOT PROT 6.1 g/dl (6.4-8.2); TOT PROT 6.2 g/dl (6.4-8.2)
[2019-07-04] MEDS: LACTULOSE 20 GM/30 ML UDC (FOR ORAL USE ONLY) PO SCH ×2 (09:33→22:41)
[2019-07-04] MEDS: NICOTINE 7 MG/24 HOURS TOPICAL PATCH TD SCH (09:35)
[2019-07-04] MEDS: PANTOPRAZOLE SODIUM 40 MG VIAL IVPUSH SCH (09:35)
[2019-07-04] MEDS: LEVOTHYROXINE NA 50 MCG TABLET (FP) PO SCH (09:35)
[2019-07-04] MEDS: FUROSEMIDE 40 MG/4 ML INJECTABLE VIAL IVPUSH SCH (09:35)
[2019-07-04] MEDS: SPIRONOLACTONE 25 MG TABLET (FP) PO SCH (09:36)
[2019-07-04] MEDS: FOLIC ACID 1 MG TABLET (FP) PO SCH (09:36)
[2019-07-04] MEDS: THIAMINE HCL 100 MG TABLET (FP) PO SCH (09:37)
[2019-07-04] MEDS ORDERED: NICOTINE 7 MG/24 HOURS TOPICAL PATCH TD SCH (10:00)
[2019-07-04] MEDS ORDERED: CEFTRIAXONE 2 GM in DEXTROSE 5%-WATER 100 ML IVPB SCH (10:00)
--- NOTE | 2019-07-04 10:19 | PN.GI ---
GI Progress Note Subjective: Laying slouched in bed. Does not want to move around much peritoneal fluid analysis not suggestive of SBP - Objective Vital Signs: Vital Signs Temperature 99.3 F 07/04/19 09:58 Pulse Rate 88 07/04/19 09:58 Respiratory Rate 19 07/04/19 09:58 Blood Pressure 98/44 L 07/04/19 09:58 O2 Sat by Pulse Oximetry (%) 92 L 07/03/19 21:00 Constitutional: Calm Eyes: No: Sclera Icterus Cardiovascular: Yes: Regular Rate and Rhythm Respiratory: Yes: Diminished (at bases R>L) Gastrointestinal Inspection: Yes: Distention ...Auscultate: Yes: Normoactive Bowel Sounds ...Palpate: Yes: Soft. No: Hepatomegaly, Splenomegaly, Tenderness ...Percussion: No: Tympanitic Edema: Yes Edema: LLE: 2+, RLE: 2+ Neurological: Yes: Alert, Oriented (x person, time). No: Asterixis Labs: CBC, BMP 07/04/19 07:42 07/04/19 07:42 INR, PTT INR 1.34 (0.83-1.09) H 07/02/19 21:40 Problem List - Problems (1) Alcoholic cirrhosis of liver with ascites Assessment/Plan: No SBP noted Diuresis as tolerated ETOH cessation Lactulose BID Lethargic at times, however no asterixis, normal ammonia level. Likely multifactorial including ativan she is receiving. Further evaluation per primary team. Incentive spirometry Leukocytosis, unclear etiology. No SBP, no focal abdominal findings. W/U per primary team. Code(s): K70.31 - ALCOHOLIC CIRRHOSIS OF LIVER WITH ASCITES
--- NOTE | 2019-07-04 11:22 | PN ---
Teaching Attending Note Name of Resident: Vicky Diaz ATTENDING PHYSICIAN STATEMENT I saw and evaluated the patient. I reviewed the resident's note and discussed the case with the resident. I agree with the resident's findings and plan as documented. Patient admits she is a chronic smoker; continues on NRT. Desaturated. Starting oral prednisone, nebs, and consulting pulmonary medicine. Discussed with Dr. Broussard who also suspects COPD. Echo normal so less likely dilated cmyo/HFpEF picture, no derangement in RVSP. She was difficult to get to respond this morning and is more interactive this PM. Given her obesity and Ativan use with detox we will hold her next doses, place her on neuro checks, check a CT, and have neuro see her. No asterixis and NH4 wnl; could be volitional but want to r/o any underlying neuro derrangement. Checked B12, TSH , etc. UCx with EF but not 100k CFU; can do a 3-5 day course of abx. Checking KWADWO eval as AM drowzyness could be related to this. 10 sys ROS done and negative aside from HPI. Echo with mild TR and normal LV and RV function VS labs imaging reviewed NAD AAO resting in bed RRR s1/2 no mgr NT ND +BS CN2-12 wnl, no fnd, slow to response in AM improved in PM CT head pending Paracentesis diagnostic results noted; Gram stain negative, NGTD on cx Bcx negative ASSESSMENT AND PLAN: Presents for AMS, decompensated cirrhosis, EtOH abuse. Less likely hepatic encephalopathy; improved mentation in PM with skipped Ativan dose. Eval for KWADWO , consulting psych given chronic issues communicated regarding her overall picture (alonside SW and CM). She desaturated today likely secondary to COPD exacerbation given ongoing tobacco abuse; unknown. Problem list: -AMS; less likely hepatic encephalopathy as no asterixis, negative NH4. Consider KWADWO, volitional component, endocrine/neuro abnl. Check TSH, etc. Consult neuro -COPD exacerbation; PRN O2. BDs, steroids, Pulm consult. Incentive hammad and tobacco cessasion -Tobacco Abuse; NRT -EtOH Cirrhosis +/- etoh hepatitis (transaminitis appreciated) -?UTI Full Code
[2019-07-04] MEDS ORDERED: ALBUTEROL SO4 0.083% IH SOL 2.5 MG/3 ML VIAL.NEB. NEB PRN (12:51)
--- NOTE | 2019-07-04 12:58 | PATH ---
Cytology Non-Gynecological Report Patient Name: [facility]. Rec. #: [id number] /Age/Gender: 1965 (Age: 54) / F Account: [id number] Location: [address] [place] [address]/[facility] Taken: 07/03/2019 Received: 07/03/2019 Reported: 07/04/2019 Physicians: Paul Mg M.D. Specimen(s) Received A: ASCITES BODY FLUID B: ASCITES BODY FLUID Clinical History Ascites Final Diagnosis A-B. BODY FLUID, ASCITES, PARACENTESIS: SATISFACTORY FOR EVALUATION. NO MALIGNANT CELLS IDENTIFIED. MESOTHELIAL CELLS, FEW MACROPHAGES, AND SCATTERED LYMPHOCYTES PRESENT. Comment: Recommend correlation with clinical findings and follow up as clinically indicated. Electronically Signed Lynda Levy M.D. Gross Description A. Approximately 60 cc of cloudy yellow fluid received fixed in 50% alcohol. One cytofunnel prepared and Pap stained. One cellblock prepared. B. Approximately 1800 cc of yellow fluid received fresh. One cytofunnel prepared and Pap stained. One cellblock prepared.
--- NOTE | 2019-07-04 13:19 | CON.PULM ---
Consult Consult Specialty:: PULMONARY Referred by:: DORON Reason for Consultation:: ASKED TO EVAL DUE TO COPD/ - History of Present Illness History of Present Illness: 54-year-old woman, first time in this hospital, with a history of alcoholic liver cirrhosis presenting complaining of worsening lower extremity edema and generalized weakness. Patient was unable to ambulate without the assistance. History obtained from chart. - History Source History Provided By: Patient, Medical Record Limitations to Obtaining History: Clinical Condition - Past Medical History Hepatobiliary: Yes: Cirrhosis (Alcohol induced) ...: No Psych: Yes: Addictions (Alcohol) Endocrine: Yes: Hypothyroidism Additional Medical History: Patient denies but did have admission medication list - Past Surgical History Past Surgical History: Yes: Joint Replacement (B/L THR, B/L knee surgery) Additional Surgical History: BTL - Alcohol/Substance Use Hx Alcohol Use: Yes History of Substance Use: reports: Cocaine (ex intranasal cocaine and smoked crack cocaine) - Smoking History Smoking history: Current every day smoker Have you smoked in the past 12 months: Yes Aproximately how many cigarettes per day: 20 - Social History Usual Living Arrangement: Alone ADL: Independent Occupation: Unemplyed History of Recent Travel: No Home Medications - Allergies Allergies/Adverse Reactions: Allergies Allergy/AdvReac Type Severity Reaction Status Date / Time No Known Allergies Allergy Verified 07/02/19 21:09 - Home Medications Home Medications: Ambulatory Orders Doxepin HCl [Sinequan -] 25 mg PO DAILY 07/03/19 Folic Acid - 1 mg PO DAILY 07/03/19 Levothyroxine [Synthroid -] 50 mcg PO DAILY 07/03/19 Family Medical History Family History: Unremarkable Review of Systems Unable to obtain ROS, reason: clinical condition Physical Exam Vital Sings: Vital Signs Temperature 99.3 F 07/04/19 09:58 Pulse Rate 86 07/04/19 10:15 Respiratory Rate 21 H 07/04/19 10:15 Blood Pressure 100/60 07/04/19 10:15 O2 Sat by Pulse Oximetry (%) 92 L 07/03/19 21:00 Constitutional: Yes: Other (lethargic) Eyes: Yes: EOM Intact HENT: Yes: Normocephalic Neck: Yes: Trachea Midline Cardiovascular: Yes: Regular Rate and Rhythm, S1, S2 Respiratory: Yes: Diminished Gastrointestinal: Yes: Soft, Ascites Edema: LLE: 2+, RLE: 2+ Neurological: Yes: Lethargy Labs: CBC, BMP 07/04/19 07:42 07/04/19 07:42 ABG Results ABG pH 7.51 (7.35-7.45) H 07/03/19 03:05 ABG pCO2 at Pt Temp 35.5 mmHg (35-45) 07/03/19 03:05 ABG pO2 at Pt Temp 62.8 mmHg (80-100) L 07/03/19 03:05 ABG HCO3 28.3 mmol/L (22-27) H 07/03/19 03:05 ABG O2 Sat (Measured) 91.7 % (95-98) L 07/03/19 03:05 ABG O2 Content 9.5 % vol 07/03/19 03:05 ABG Base Excess 5.3 meq/l (-2-2) H 07/03/19 03:05 rest reviewed Imaging - Results Chest X-ray: Report Reviewed, Image Reviewed Problem List - Problems (1) COPD (chronic obstructive pulmonary disease) Code(s): J44.9 - CHRONIC OBSTRUCTIVE PULMONARY DISEASE, UNSPECIFIED (2) Alcoholic cirrhosis of liver with ascites Code(s): K70.31 - ALCOHOLIC CIRRHOSIS OF LIVER WITH ASCITES (3) Cannabis dependence Code(s): F12.20 - CANNABIS DEPENDENCE, UNCOMPLICATED (4) Cocaine dependence Code(s): F14.20 - COCAINE DEPENDENCE, UNCOMPLICATED Assessment/Plan DECOMPENSATED CIRRHOTIC/ETOHISM COPD DUE TO CIGARETTES MANY YEARS/NOT IN EXACERBATION AT THIS TIME SMOKING CESSATION BRONCHODILATORS NEEDED O2 PRN TO KEEP SAT GREATER THAN 90% WILL NEED OUTPATIENT PFT'S TAPER PREDNISONE Kamala SAL MD
[2019-07-04] MEDS: predniSONE 20 MG TABLET (UD) PO SCH (13:39)
[2019-07-04 13:50] LABS: N-TERMINAL BNP 573.7 pg/ml (5-125)
--- NOTE | 2019-07-04 15:01 | CONSULT ---
Consult - text type - Consultation Consultation Note: Neurology CHIEF COMPLAINT: Worsening LE edema, SOB, abdominal bloating, and fatigue for the pat 6 months PCP: None HISTORY OF PRESENT ILLNESS: This is a 54 year old female with PMH significant for Alcoholic Cirrhosis, GERD , and hypothyroidism. She presented to the ER with complaints of worsening LE edema resulting in an inability to walk, SOB, abdominal bloating, and fatigue for the past 6 months. She has been hospitalized approximately 4 times over the past 6 months at [facility], and stated that she was diagnosed with liver cirrhosis. She has been drinking for several years (she is unable to quantify and stated that she has been drinking forever), and her last drink was Jun 13 2019. Before then, she would usually drink over 1 pint of vodka per day. She endorsed nausea, SOB, orthopnea, light headedness, but no vomiting, diarrhea, constipation, chest pain, abdominal pain, dysuria, urinary urgency, urinary frequency, or hematuria. She admited to multiple episodes of hemetemesis, but stated that she has not had any episodes in the past 6 months. Her SOB has been worsening progressively, and she admited to snoring as well as waking up at night with SOB. She has never been officialy diagnosed with apnea. She also stated that she has had multiple falls over the past few years due to being intoxicated, but reported no recent falls or head trauma. Her diet has been erratic, and she claims to have missed meals for up to 10 days at a time. She has attempted detox in the past, and was admitted at [facility] in 2015 for alcohol, cannabis, and cocaine use, although she denied any other drug use at this time. She smokes a 1/2 pack per day, down from 1.5 pack previously. She endorsed intermittent chills over the past few weeks, without any documented or subjective fevers. She also endorsed progressive worsening SOB and orthopnea. Lower extremities doppler reviewed and showed no evidence of deep venous thrombosis. I was consulted for mental status and during my evaluation she was able to toe me that she is in the hospital and correctly names [facility]. She was not able to give me the correct month and initially indicated it was March. She was able to tell me the correct year as well as the name of the president. I discussed with her having noncontrast head CT to evaluate for any significant structural abnormalities and she said she plans on leaving but was in agreement. I discussed with her that cognitive issues may be related to chronic alcohol use and she was in agreement with this as well. Recent Travel: denies PAST MEDICAL HISTORY: As listed in HPI PAST SURGICAL HISTORY: Denies Family History: HTN Social History: As listed in HPI REVIEW OF SYSTEMS CONSTITUTIONAL: chills Absent: fever, chills, diaphoresis, generalized weakness, malaise, loss of appetite, weight change HEENT: Absent: rhinorrhea, nasal congestion, throat pain, throat swelling, difficulty swallowing, mouth swelling, ear pain, eye pain, visual changes CARDIOVASCULAR: Absent: chest pain, syncope, palpitations, irregular heart rate, lightheadedness , peripheral edema RESPIRATORY: SOB Absent: cough, shortness of breath, dyspnea with exertion, orthopnea, wheezing, stridor, hemoptysis GASTROINTESTINAL: nausea, bloating Absent: abdominal pain, abdominal distension, nausea, vomiting, diarrhea, constipation, melena, hematochezia GENITOURINARY: Absent: dysuria, frequency, urgency, hesitancy, hematuria, flank pain, genital pain MUSCULOSKELETAL: Absent: myalgia, arthralgia, joint swelling, back pain, neck pain SKIN: Absent: rash, itching, pallor HEMATOLOGIC/IMMUNOLOGIC: Absent: easy bleeding, easy bruising, lymphadenopathy, frequent infections ENDOCRINE: Absent: unexplained weight gain, unexplained weight loss, heat intolerance, cold intolerance NEUROLOGIC: Absent: headache, focal weakness or paresthesias, dizziness, unsteady gait, seizure, mental status changes, bladder or bowel incontinence PSYCHIATRIC: Absent: anxiety, depression, suicidal or homicidal ideation, hallucinations. Allergies No Known Allergies Allergy (Verified 07/02/19 21:09) HOME MEDICATIONS: Ambulatory Orders Doxepin HCl [Sinequan -] 25 mg PO DAILY 07/03/19 Folic Acid - 1 mg PO DAILY 07/03/19 Levothyroxine [Synthroid -] 50 mcg PO DAILY 07/03/19 Active Medications Albuterol Sulfate (Ventolin 0.083% Nebulizer Soln -) 1 amp NEB Q4H PRN PRN Reason: SHORT OF BREATH/WHEEZING Albuterol/Ipratropium (Duoneb -) 1 amp NEB RQID RODRIGO Doxepin HCl (Sinequan -) 25 mg PO HS RODRIGO Folic Acid (Folic Acid -) 1 mg PO DAILY RODRIGO Last Admin: 07/04/19 09:36 Dose: 1 mg Furosemide (Lasix Injection -) 40 mg IVPUSH DAILY [facility] Last Admin: 07/04/19 09:35 Dose: 40 mg Levofloxacin (Levaquin 750 Mg Premixed Ivpb -) 750 mg in 150 mls @ 100 mls/hr IVPB DAILY [facility]; Protocol Last Admin: 07/04/19 13:39 Dose: 100 mls/hr Lactulose (Cephulac (Oral Use)) 20 gm PO BID [facility] Last Admin: 07/04/19 09:33 Dose: 20 gm Levothyroxine Sodium (Synthroid -) 50 mcg PO 0700 [facility] Last Admin: 07/04/19 09:35 Dose: 50 mcg Lorazepam (Ativan -) 0.5 mg PO Q6H [facility] Stop: 07/05/19 23:01 Lorazepam (Ativan -) 0.5 mg PO Q4H PRN PRN Reason: Symptoms of Withdrawal Stop: 07/06/19 00:00 Lorazepam (Ativan -) 0.5 mg PO ONCE ONE Stop: 07/06/19 05:01 Lorazepam (Ativan -) 1 mg PO 0500,1100,1700,2300 [facility] Stop: 07/05/19 05:01 Last Admin: 07/04/19 10:10 Dose: 1 mg Lorazepam (Ativan -) 1 mg PO Q4H PRN PRN Reason: Symptoms of Withdrawal Stop: 07/05/19 00:00 Nicotine (Nicoderm Patch -) 7 mg TD DAILY [facility] Last Admin: 07/04/19 09:35 Dose: 7 mg Pantoprazole Sodium (Protonix Iv) 40 mg IVPUSH DAILY [facility] Last Admin: 07/04/19 09:35 Dose: 40 mg Prednisone (Deltasone -) 60 mg PO DAILY [facility] Last Admin: 07/04/19 13:39 Dose: 60 mg Propranolol HCl (Inderal -) 10 mg PO TID [facility] Last Admin: 07/04/19 13:41 Dose: 10 mg Spironolactone (Aldactone -) 12.5 mg PO DAILY [facility] Last Admin: 07/04/19 09:36 Dose: 12.5 mg Thiamine HCl (Vitamin B1 -) 100 mg PO DAILY [facility] Last Admin: 07/04/19 09:37 Dose: 100 mg PHYSICAL EXAMINATION Vital Signs Period Temp Pulse Resp BP Sys/Cortez Pulse Ox Last 24 Hr 98.3 F-100.3 F 81-90 18-22 95-123/44-60 92 GENERAL: AOx3, jaundiced HEAD: Normal with no signs of trauma. EYES: Pupils equal, round and reactive to light, extraocular movements intact, sclera icteric, conjunctiva clear. No lid lag. EARS, NOSE, THROAT: Ears normal, nares patent, oropharynx clear without exudates. Moist mucous membranes. NECK: Normal range of motion, supple without lymphadenopathy, JVD, or masses. LUNGS: Breath sounds equal, clear to auscultation bilaterally. No wheezes, and no crackles. No accessory muscle use. HEART: Regular rate and rhythm, systolic murmur 3/6 on RSB ABDOMEN: Soft, distended, non tender with fluid thrill UPPER EXTREMITIES: 2+ pulses, warm, well-perfused. No cyanosis. No clubbing. No peripheral edema. LOWER EXTREMITIES: B/L pitting edema 2+, no calf tenderness NEUROLOGICAL: Patient refused motor/sensory examination/ Tremor noticed when hands outstretched PSYCHIATRIC: Cooperative. Good eye contact. Appropriate mood and affect. SKIN: Warm, dry, normal turgor, no rashes or lesions noted, normal capillary refill. CBCD WBC 17.4 K/mm3 (4.0-10.0) H 07/04/19 07:42 RBC 2.37 M/mm3 (3.60-5.2) L 07/04/19 07:42 Hgb 8.7 GM/dL (10.7-15.3) L 07/04/19 07:42 Hct 26.8 % (32.4-45.2) L 07/04/19 07:42 MCV 113.0 fl (80-96) H 07/04/19 07:42 MCHC 32.4 g/dl (32.0-36.0) 07/04/19 07:42 RDW 17.8 % (11.6-15.6) H 07/04/19 07:42 Plt Count 425 K/MM3 (134-434) 07/04/19 07:42 MPV 8.1 fl (7.5-11.1) 07/04/19 07:42 CMP Sodium 137 mmol/L (136-145) 07/04/19 07:42 Potassium 3.7 mmol/L (3.5-5.1) 07/04/19 07:42 Chloride 98 mmol/L (98-107) 07/04/19 07:42 Carbon Dioxide 32 mmol/L (21-32) 07/04/19 07:42 Anion Gap 6 MMOL/L (8-16) L 07/04/19 07:42 BUN 9.1 mg/dL (7-18) 07/04/19 07:42 Creatinine 0.6 mg/dL (0.55-1.3) 07/04/19 07:42 Random Glucose 77 mg/dL (74-106) 07/04/19 07:42 Calcium 8.9 mg/dL (8.5-10.1) 07/04/19 07:42 Total Bilirubin 2.6 mg/dL (0.2-1) H 07/04/19 07:42 AST 210 U/L (15-37) H 07/04/19 07:42 ALT 32 U/L (13-61) 07/04/19 07:42 Alkaline Phosphatase 322 U/L (45-117) H 07/04/19 07:42 Total Protein 6.1 g/dl (6.4-8.2) L 07/04/19 07:42 Albumin 1.7 g/dl (3.4-5.0) L 07/04/19 07:42 CARDIAC ENZYMES Creatine Kinase 15 U/L (26-192) L 07/03/19 03:45 Troponin I < 0.02 ng/ml (0.00-0.05) 07/03/19 03:45 ASSESSMENT/PLAN: This is a 54 year old female with PMH significant for Alcoholic Cirrhosis, GERD , and hypothyroidism. She presented to the ER with complaints of worsening LE edema resulting in an inability to walk, SOB, abdominal bloating, and fatigue for the past 6 months. She has been hospitalized approximately 4 times over the past 6 months at [facility], and stated that she was diagnosed with liver cirrhosis. She has been drinking for several years (she is unable to quantify and stated that she has been drinking forever), and her last drink was Jun 13 2019. Before then, she would usually drink over 1 pint of vodka per day. She endorsed nausea, SOB, orthopnea, light headedness, but no vomiting, diarrhea, constipation, chest pain, abdominal pain, dysuria, urinary urgency, urinary frequency, or hematuria. She admited to multiple episodes of hemetemesis, but stated that she has not had any episodes in the past 6 months. Her SOB has been worsening progressively, and she admited to snoring as well as waking up at night with SOB. She has never been officialy diagnosed with apnea. She also stated that she has had multiple falls over the past few years due to being intoxicated, but reported no recent falls or head trauma. I was consulted for mental status and during my evaluation she was able to toe me that she is in the hospital and correctly names [facility]. She was not able to give me the correct month and initially indicated it was March. She was able to tell me the correct year as well as the name of the president. I discussed with her having noncontrast head CT to evaluate for any significant structural abnormalities and she said she plans on leaving but was in agreement. I discussed with her that cognitive issues may be related to chronic alcohol use and she was in agreement with this as well. Monitor ammonia, GI follow up. Alcohol cessation would be the most important aspect to her treatment. Noncontrast head CT has been ordered, follow-up results. Monger thyroid levelas hypothyroidism can precipitate ccognitive impairment. Adequate hydration recommended, replenish electrotyles. Medical optimization.
[2019-07-04] MEDS: ALBUTEROL SO4 2.5/IPRATROPIUM 0.5 INH SOL 3 ML VIAL.NEB. NEB SCH ×2 (16:29→20:48)
[2019-07-04 17:06] LABS: BODY FLUID ALBUMIN 0.6 g/dL (Not Estab.)
[2019-07-04] MEDS: DOXEPIN HCL 25 MG CAPSULE PO SCH (22:37)
[2019-07-05] MEDS ORDERED: LORazepam 0.5 MG TABLET PO PRN
[2019-07-05] MEDS ORDERED: PT OWN MED DRAWER 7, Y5N ONE ×2 (05:56→14:50)
[2019-07-05] MEDS: LEVOTHYROXINE NA 50 MCG TABLET (FP) PO SCH (06:09)
[2019-07-05] MEDS: LORazepam 1 MG TABLET PO SCH (06:10)
[2019-07-05] MEDS: LORazepam 0.5 MG TABLET PO SCH ×4 (06:21→23:50)
[2019-07-05] MEDS: ALBUTEROL SO4 2.5/IPRATROPIUM 0.5 INH SOL 3 ML VIAL.NEB. NEB SCH ×4 (07:20→20:20)
[2019-07-05 07:55] LABS: HEMATOCRIT 23.1 % (32.4-45.2); HEMOGLOBIN 7.6 GM/dL (10.7-15.3); MCH 36.3 pg (25.7-33.7); MCHC 32.8 g/dl (32.0-36.0); MEAN CELL VOLUME 110.6 fl (80-96); PLATELET COUNT 355 K/MM3 (134-434); RBC 2.09 M/mm3 (3.60-5.2); RDW 17.7 % (11.6-15.6); WHITE BLOOD COUNT 13.4 K/mm3 (4.0-10.0)
[2019-07-05 09:15] LABS: ALBUMIN 1.6 g/dl (3.4-5.0); BILIRUBIN,TOTAL 1.8 mg/dL (0.2-1); BLOOD UREA NITROGEN 16.8 mg/dL (7-18); CALCIUM 8.1 mg/dL (8.5-10.1); CREATININE 0.7 mg/dL (0.55-1.3); POTASSIUM 3.5 mmol/L (3.5-5.1); TOT PROT 5.4 g/dl (6.4-8.2)
[2019-07-05] MEDS: LACTULOSE 20 GM/30 ML UDC (FOR ORAL USE ONLY) PO SCH ×2 (09:21→21:39)
[2019-07-05] MEDS: predniSONE 20 MG TABLET (UD) PO SCH (09:21)
[2019-07-05] MEDS: SPIRONOLACTONE 25 MG TABLET (FP) PO SCH (09:21)
[2019-07-05] MEDS: THIAMINE HCL 100 MG TABLET (FP) PO SCH (09:22)
[2019-07-05] MEDS: FUROSEMIDE 40 MG/4 ML INJECTABLE VIAL IVPUSH SCH (09:22)
[2019-07-05] MEDS: NICOTINE 7 MG/24 HOURS TOPICAL PATCH TD SCH (09:22)
[2019-07-05] MEDS: FOLIC ACID 1 MG TABLET (FP) PO SCH (09:22)
[2019-07-05] MEDS: PANTOPRAZOLE SODIUM 40 MG VIAL IVPUSH SCH (09:22)
--- NOTE | 2019-07-05 11:31 | PN ---
Physical Exam: SUBJECTIVE: Patient seen and examined. Patient was indicated to me by physical therapy is taking off her oxygen and falling asleep without it and desaturating into the mid 70s immediately returning to the high 80s low 90s after. She is given a breathing treatment and had improvement. Noted pulmonary medicine consult and neurology consult to note with the patient yesterday. Appreciate expert opinion. Pulmonary medicine states that the patient has decompensated cirrhosis and COPD exacerbation due to tobacco abuse. Recommended outpatient PFTs, O2 greater than 90%, smoking cessation, and prednisone taper. Neurology states that alcohol cessation is the most important aspect of her treatment and to follow-up the results of the head CT. The head CT was performed and read which notes no acute intracranial pathology with involutional changes and mild ventricular dilatation with healed fracture of the left nasal bone and small amount of fluid in the right mastoid air cells of indeterminate clinical significance. Bilirubin trending down to 1.8 from 2.6, AST trended down alongside alkaline phosphatase. Prealbumin noted to be low at 3.4. White blood cells trended down to 13.4 with hemoglobin 7.6. This is around her baseline. FOBT negative. Starting on iron supplementation. Pending repeat urine culture but likely inaccurate given that she will be on antibiotics whendrawn. No new complaints. OBJECTIVE: Vital Signs Period Temp Pulse Resp BP Sys/Cortez Pulse Ox Last 24 Hr 98.0 F-98.9 F 76-81 20-22 90-100/44-54 95 GENERAL: The patient is awake, alert, and fully oriented when prompted but lethargic, in no acute distress. HEAD: Normal with no signs of trauma. EYES: PERRL, extraocular movements intact, sclera anicteric, conjunctiva clear. No ptosis. ENT: Ears normal, nares patent, oropharynx clear without exudates, moist mucous membranes. NECK: Trachea midline, full range of motion, supple. LUNGS: Breath sounds equal, clear to auscultation bilaterally, no wheezes, no crackles, no accessory muscle use. HEART: Regular rate and rhythm, S1, S2 without murmur, rub or gallop. ABDOMEN: Soft, nontender, nondistended, normoactive bowel sounds, no asterixis EXTREMITIES: 2+ pulses, warm, well-perfused, no edema. NEUROLOGICAL: Cranial nerves II through XII grossly intact. Normal speech, gait not observed. PSYCH: Normal mood, normal affect. SKIN: Warm, dry, normal turgor, no rashes or lesions noted Laboratory Results - last 24 hr 07/03/19 07/04/19 07/05/19 11:50 07:42 07:30 WBC 13.4 H RBC 2.09 L Hgb 7.6 L Hct 23.1 L MCV 110.6 H MCH 36.3 H MCHC 32.8 RDW 17.7 H Plt Count 355 MPV 8.0 Sodium 137 Potassium 3.7 Chloride 98 Carbon Dioxide 32 Anion Gap 6 L BUN 9.1 Creatinine 0.6 Est GFR (CKD-EPI)AfAm 118.93 Est GFR (CKD-EPI)NonAf 102.61 Random Glucose 77 Calcium 8.9 Total Bilirubin 2.6 H AST 210 H ALT 32 Alkaline Phosphatase 322 H B-Natriuretic Peptide 573.7 H Total Protein 6.1 L Albumin 1.7 L Prealbumin 3.4 L POC Fluid pH 7.8 Fluid Glucose 98 Fluid Total Protein 1.4 Fluid Albumin 0.6 Body Fluid LDH Source 61 Fluid Amylase 12 07/05/19 07:30 WBC RBC Hgb Hct MCV MCH MCHC RDW Plt Count MPV Sodium 136 Potassium 3.5 Chloride 98 Carbon Dioxide 31 Anion Gap 7 L BUN 16.8 Creatinine 0.7 Est GFR (CKD-EPI)AfAm 113.05 Est GFR (CKD-EPI)NonAf 97.54 Random Glucose 118 H Calcium 8.1 L Total Bilirubin 1.8 H AST 120 H ALT 24 Alkaline Phosphatase 276 H B-Natriuretic Peptide Total Protein 5.4 L Albumin 1.6 L Prealbumin POC Fluid pH Fluid Glucose Fluid Total Protein Fluid Albumin Body Fluid LDH Source Fluid Amylase Active Medications Generic Name Dose Route Start Last Admin Trade Name Freq PRN Reason Stop Dose Admin Albuterol Sulfate 1 amp 07/04/19 12:51 Ventolin 0.083% Nebulizer Soln - NEB Q4H PRN SHORT OF BREATH/WHEEZING Albuterol/Ipratropium 1 amp 07/04/19 16:00 07/05/19 07:20 Duoneb - NEB 1 amp RQID RODRIGO Administration Doxepin HCl 25 mg 07/04/19 22:00 07/04/19 22:37 Sinequan - PO 25 mg HS RODRIGO Administration Folic Acid 1 mg 07/03/19 10:45 07/05/19 09:22 Folic Acid - PO 1 mg DAILY RODRIGO Administration Furosemide 40 mg 07/03/19 10:45 07/05/19 09:22 Lasix Injection - IVPUSH 40 mg DAILY RODRIGO Administration Levofloxacin 750 mg in 150 mls @ 100 mls/hr 07/04/19 11:40 07/05/19 09:21 Levaquin 750 Mg Premixed Ivpb - IVPB 100 mls/hr DAILY RODRIGO Administration Protocol Lactulose 20 gm 07/03/19 14:15 07/05/19 09:21 Cephulac (Oral Use) PO 20 gm BID RODRIGO Administration Levothyroxine Sodium 50 mcg 07/04/19 10:00 07/05/19 06:09 Synthroid - PO 50 mcg 0700 RODRIGO Administration Lorazepam 0.5 mg 07/05/19 05:00 07/05/19 06:21 Ativan - PO 07/05/19 23:01 0.5 mg Q6H RODRIGO Administration Lorazepam 0.5 mg 07/05/19 00:00 Ativan - PO 07/06/19 00:00 Q4H PRN Symptoms of Withdrawal Lorazepam 0.5 mg 07/06/19 05:00 Ativan - PO 07/06/19 05:01 ONCE ONE Nicotine 7 mg 07/03/19 22:49 07/05/19 09:22 Nicoderm Patch - TD 7 mg DAILY RODRIGO Administration Pantoprazole Sodium 40 mg 07/03/19 10:45 07/05/19 09:22 Protonix Iv IVPUSH 40 mg DAILY RODRIGO Administration Prednisone 60 mg 07/04/19 13:00 07/05/19 09:21 Deltasone - PO 60 mg DAILY RODRIGO Administration Propranolol HCl 10 mg 07/03/19 10:45 07/05/19 06:21 Inderal - PO 10 mg TID RODRIGO Administration Spironolactone 12.5 mg 07/03/19 10:45 07/05/19 09:21 Aldactone - PO 12.5 mg DAILY RODRIGO Administration Thiamine HCl 100 mg 07/03/19 10:45 07/05/19 09:22 Vitamin B1 - PO 100 mg DAILY RODRIGO Administration Microbiology 07/03/19 02:03 Blood - Peripheral Venous Blood Culture - Preliminary NO GROWTH OBTAINED AFTER 48 HOURS, INCUBATION TO CONTINUE FOR 3 DAYS. 07/03/19 02:03 Blood - Peripheral Venous Blood Culture - Preliminary NO GROWTH OBTAINED AFTER 48 HOURS, INCUBATION TO CONTINUE FOR 3 DAYS. 07/03/19 11:50 Ascites Gram Stain - Final 07/03/19 11:50 Ascites Body Fluid Culture - Preliminary NO AEROBIC GROWTH, 24 HRS 07/03/19 03:45 Urine - Urine Ramon Urine Culture - Preliminary Group D Strep Or Entero Coccus 07/03/19 11:50 Ascites AFB Smear Concentration - Preliminary 07/03/19 11:50 Ascites Mycobacterial Culture - Preliminary 07/03/19 11:50 Ascites GRACY Preparation - Preliminary 07/03/19 11:50 Ascites Fungal Culture - Preliminary Echocardiogram noted yesterday with normal LVEF RVEF and trace tricuspid abnl No FNDs with neuro checks ASSESSMENT/PLAN: Patient presented for altered mental status/abdominal discomfort. Found to have negative studies of her ascitic fluid for SBP. Normal echocardiogram. Was started on treatment for the decompensated cirrhosis secondary to alcohol abuse. She is a tobacco abuser and has a COPD exacerbation and desaturates without oxygen and is currently requiring oxygen to maintain her levels. I suspect that she has underlying KWADWO as well and a sleep study has been ordered. Pulmonary medicine continues to follow. We will continue the patient on current medications, repeat urine culture, and complete her Ativan taper. Psychiatry did not see the patient due to her having alcohol abuse, but the consultation was more so for her altered mentation without positive mental ammonia/asterixis or any focal neurologic abnormalities. Given her history at [facility] and other facilities which is currently still being elucidated, I feel there may be an underlying psychiatric or volitional component to her behavior. Problem list: -AMS; less likely hepatic encephalopathy as no asterixis, negative NH4. Consider KWADWO, volitional component, endocrine/neuro abnl. Check TSH, etc. Consult neuro -COPD exacerbation; PRN O2. BDs, steroids, Pulm consult. Incentive hammad and tobacco cessasion -Tobacco Abuse; NRT -EtOH Cirrhosis +/- etoh hepatitis (transaminitis appreciated) -?UTI Visit type - Emergency Visit Emergency Visit: No - New Patient This patient is new to me today: No - Critical Care Critical Care patient: No
[2019-07-05] MEDS ORDERED: LINEZOLID 600 MG PREMIX BAG 600 MG in PREMIX 300 IVPB SCH (14:15)
--- NOTE | 2019-07-05 14:58 | PN ---
Progress Note (short form) - Note Progress Note: PULMONARY MORE AWAKE/ALERT TODAY VSS/AFEBRILE Eyes: Yes: EOM Intact HENT: Yes: Normocephalic Neck: Yes: Trachea Midline Cardiovascular: Yes: Regular Rate and Rhythm, S1, S2 Respiratory: Yes: Diminished Gastrointestinal: Yes: Soft, Ascites Edema: LLE: 2+, RLE: 2+ Neurological: Yes: Lethargy Labs: NOTED rest reviewed Imaging REVIEWED Problem List - Problems (1) COPD (chronic obstructive pulmonary disease) Code(s): J44.9 - CHRONIC OBSTRUCTIVE PULMONARY DISEASE, UNSPECIFIED (2) Alcoholic cirrhosis of liver with ascites Code(s): K70.31 - ALCOHOLIC CIRRHOSIS OF LIVER WITH ASCITES (3) Cannabis dependence Code(s): F12.20 - CANNABIS DEPENDENCE, UNCOMPLICATED (4) Cocaine dependence Code(s): F14.20 - COCAINE DEPENDENCE, UNCOMPLICATED Assessment/Plan DECOMPENSATED CIRRHOTIC/ETOHISM COPD DUE TO CIGARETTES MANY YEARS/NOT IN EXACERBATION AT THIS TIME SMOKING CESSATION BRONCHODILATORS NEEDED O2 PRN TO KEEP SAT GREATER THAN 90% WILL NEED OUTPATIENT PFT'S TAPER PREDNISONE Kamala SAL MD Problem List - Problems (1) COPD (chronic obstructive pulmonary disease) Code(s): J44.9 - CHRONIC OBSTRUCTIVE PULMONARY DISEASE, UNSPECIFIED (2) Alcoholic cirrhosis of liver with ascites Code(s): K70.31 - ALCOHOLIC CIRRHOSIS OF LIVER WITH ASCITES (3) Cannabis dependence Code(s): F12.20 - CANNABIS DEPENDENCE, UNCOMPLICATED (4) Cocaine dependence Code(s): F14.20 - COCAINE DEPENDENCE, UNCOMPLICATED
[2019-07-05] MEDS ORDERED: DAPTOMYCIN 750 MG in SODIUM CHLORIDE 100 ML IVPB ONE (16:00)
[2019-07-05] MEDS: DOXEPIN HCL 25 MG CAPSULE PO SCH (21:39)
[2019-07-06] MEDS ORDERED: LORazepam 0.5 MG TABLET PO ONE ×2 (05:00→06:00)
[2019-07-06] MEDS: LEVOTHYROXINE NA 50 MCG TABLET (FP) PO SCH (06:21)
[2019-07-06] MEDS: ALBUTEROL SO4 2.5/IPRATROPIUM 0.5 INH SOL 3 ML VIAL.NEB. NEB SCH ×4 (07:20→19:30)
[2019-07-06 08:36] LABS: HEMATOCRIT 25.1 % (32.4-45.2); HEMOGLOBIN 8.1 GM/dL (10.7-15.3); MCH 35.6 pg (25.7-33.7); MCHC 32.1 g/dl (32.0-36.0); MEAN CELL VOLUME 110.9 fl (80-96); MEAN PLT VOLUME 8.1 fl (7.5-11.1); PLATELET COUNT 375 K/MM3 (134-434); RBC 2.26 M/mm3 (3.60-5.2); RDW 18.1 % (11.6-15.6)
[2019-07-06 09:08] LABS: ALBUMIN 1.8 g/dl (3.4-5.0); BILIRUBIN,TOTAL 1.5 mg/dL (0.2-1); BLOOD UREA NITROGEN 20.1 mg/dL (7-18); CALCIUM 7.9 mg/dL (8.5-10.1); CREATININE 0.7 mg/dL (0.55-1.3); MAGNESIUM 1.6 mg/dL (1.8-2.4); POTASSIUM 3.4 mmol/L (3.5-5.1); TOT PROT 5.8 g/dl (6.4-8.2)
[2019-07-06] MEDS: FUROSEMIDE 40 MG/4 ML INJECTABLE VIAL IVPUSH SCH (09:18)
[2019-07-06] MEDS: PANTOPRAZOLE SODIUM 40 MG VIAL IVPUSH SCH (09:18)
[2019-07-06] MEDS: SPIRONOLACTONE 25 MG TABLET (FP) PO SCH (09:18)
[2019-07-06] MEDS: FOLIC ACID 1 MG TABLET (FP) PO SCH (09:18)
[2019-07-06] MEDS: LACTULOSE 20 GM/30 ML UDC (FOR ORAL USE ONLY) PO SCH ×2 (09:18→21:03)
[2019-07-06] MEDS: NICOTINE 7 MG/24 HOURS TOPICAL PATCH TD SCH (09:18)
[2019-07-06] MEDS: predniSONE 20 MG TABLET (UD) PO SCH (09:18)
[2019-07-06] MEDS: THIAMINE HCL 100 MG TABLET (FP) PO SCH (09:19)
--- NOTE | 2019-07-06 11:45 | PN ---
Progress Note (short form) - Note Progress Note: PULMONARY MORE AWAKE/ALERT TODAY VSS/AFEBRILE Eyes: Yes: EOM Intact HENT: Yes: Normocephalic Neck: Yes: Trachea Midline Cardiovascular: Yes: Regular Rate and Rhythm, S1, S2 Respiratory: Yes: Diminished Gastrointestinal: Yes: Soft, Ascites Edema: LLE: 2+, RLE: 2+ Neurological: Yes: Lethargy Labs: NOTED rest reviewed Imaging REVIEWED Problem List - Problems (1) COPD (chronic obstructive pulmonary disease) Code(s): J44.9 - CHRONIC OBSTRUCTIVE PULMONARY DISEASE, UNSPECIFIED (2) Alcoholic cirrhosis of liver with ascites Code(s): K70.31 - ALCOHOLIC CIRRHOSIS OF LIVER WITH ASCITES (3) Cannabis dependence Code(s): F12.20 - CANNABIS DEPENDENCE, UNCOMPLICATED (4) Cocaine dependence Code(s): F14.20 - COCAINE DEPENDENCE, UNCOMPLICATED Assessment/Plan DECOMPENSATED CIRRHOTIC/ETOHISM COPD DUE TO CIGARETTES MANY YEARS/NOT IN EXACERBATION AT THIS TIME SMOKING CESSATION BRONCHODILATORS NEEDED O2 PRN TO KEEP SAT GREATER THAN 90% WILL NEED OUTPATIENT PFT'S TAPER PREDNISONE OOB TO CHAIR Kamala SAL MD Problem List - Problems (1) COPD (chronic obstructive pulmonary disease) Code(s): J44.9 - CHRONIC OBSTRUCTIVE PULMONARY DISEASE, UNSPECIFIED (2) Alcoholic cirrhosis of liver with ascites Code(s): K70.31 - ALCOHOLIC CIRRHOSIS OF LIVER WITH ASCITES (3) Cannabis dependence Code(s): F12.20 - CANNABIS DEPENDENCE, UNCOMPLICATED (4) Cocaine dependence Code(s): F14.20 - COCAINE DEPENDENCE, UNCOMPLICATED
--- NOTE | 2019-07-06 11:47 | CON.ID ---
Consult Consult Specialty:: infectious diseases Referred by:: Reason for Consultation:: leukocytosis,uti - History of Present Illness Chief Complaint: abd pain History of Present Illness: 54 year old female with PMH significant for Alcoholic Cirrhosis, GERD, and hypothyroidism. She presented to the ER with complaints of worsening LE edema resulting in an inability to walk, SOB, abdominal bloating, and fatigue for the past 6 months. She has been hospitalized approximately 4 times over the past 6 months at [facility], and stated that she was diagnosed with liver cirrhosis. She has been drinking for several years (she is unable to quantify and stated that she has been drinking forever), and her last drink was Jun 13 2019. patient currently much more awake and alert and no significant complaints but does c/o of abd pain patients wbc has been going up patient had diagnostic tap done and cx awaited patient is not c/o of anything else at this time - History Source History Provided By: Patient, Medical Record Limitations to Obtaining History: Poor Historian - Past Medical History Hepatobiliary: Yes: Cirrhosis (Alcohol induced) ...: No Psych: Yes: Addictions (Alcohol) Endocrine: Yes: Hypothyroidism Additional Medical History: Patient denies but did have admission medication list - Past Surgical History Past Surgical History: Yes: Joint Replacement (B/L THR, B/L knee surgery) Additional Surgical History: BTL - Alcohol/Substance Use Hx Alcohol Use: Yes History of Substance Use: reports: Cocaine (ex intranasal cocaine and smoked crack cocaine) - Smoking History Smoking history: Current every day smoker Have you smoked in the past 12 months: Yes Aproximately how many cigarettes per day: 20 - Social History Usual Living Arrangement: Alone ADL: Independent Occupation: Unemplyed History of Recent Travel: No Home Medications - Allergies Allergies/Adverse Reactions: Allergies Allergy/AdvReac Type Severity Reaction Status Date / Time No Known Allergies Allergy Verified 07/02/19 21:09 - Home Medications Home Medications: Ambulatory Orders Doxepin HCl [Sinequan -] 25 mg PO DAILY 07/03/19 Folic Acid - 1 mg PO DAILY 07/03/19 Levothyroxine [Synthroid -] 50 mcg PO DAILY 07/03/19 Review of Systems - Review of Systems Constitutional: reports: No Symptoms Eyes: reports: No Symptoms HENT: reports: No Symptoms Neck: reports: No Symptoms Cardiovascular: reports: No Symptoms Respiratory: reports: No Symptoms Gastrointestinal: reports: Abdominal Pain Genitourinary: reports: No Symptoms Musculoskeletal: reports: No Symptoms Integumentary: reports: No Symptoms Neurological: reports: No Symptoms Endocrine: reports: No Symptoms Hematology/Lymphatic: reports: No Symptoms Psychiatric: reports: No Symptoms Physical Exam Vital Signs: Vital Signs Temperature 98 F 07/06/19 08:27 Pulse Rate 77 07/06/19 08:27 Respiratory Rate 20 07/06/19 08:33 Blood Pressure 90/54 L 07/06/19 08:27 O2 Sat by Pulse Oximetry (%) 90 L 07/06/19 08:33 Constitutional: Yes: Calm, Mild Distress HENT: Yes: Atraumatic Cardiovascular: Yes: Regular Rate and Rhythm Respiratory: Yes: Regular, CTA Bilaterally Gastrointestinal: Yes: Normal Bowel Sounds, Soft, Ascites, Tenderness Musculoskeletal: Yes: WNL Extremities: Yes: WNL Neurological: Yes: Alert, Oriented Psychiatric: Yes: Alert, Oriented Labs: CBC, BMP 07/06/19 08:10 07/06/19 08:10 Imaging - Results Chest X-ray: Report Reviewed, Image Reviewed Cat Scan: Report Reviewed, Image Reviewed Assessment/Plan Problem List - Problems (1) COPD (chronic obstructive pulmonary disease) Code(s): J44.9 - CHRONIC OBSTRUCTIVE PULMONARY DISEASE, UNSPECIFIED (2) Alcoholic cirrhosis of liver with ascites Code(s): K70.31 - ALCOHOLIC CIRRHOSIS OF LIVER WITH ASCITES (3) Cannabis dependence Code(s): F12.20 - CANNABIS DEPENDENCE, UNCOMPLICATED (4) Cocaine dependence Code(s): F14.20 - COCAINE DEPENDENCE, UNCOMPLICATED leukocytosis plan will stop levaquin will change to ceftriaxone
[2019-07-06] MEDS ORDERED: cefTRIAXone SODIUM 1 GM VIAL ONE (12:34)
[2019-07-06] MEDS ORDERED: DEXTROSE 5%-WATER - 50 ML IVPB ONE (12:35)
[2019-07-06] MEDS: CEFTRIAXONE 1 GM in DEXTROSE 5%-WATER - 50 ML IVPB SCH (13:09)
--- NOTE | 2019-07-06 16:49 | PN ---
Physical Exam: SUBJECTIVE: Patient seen and examined. No acute events overnight. OBJECTIVE: Vital Signs Period Temp Pulse Resp BP Sys/Cortez Pulse Ox Last 24 Hr 97.9 F-98.2 F 71-89 20-20 90-115/52-62 90-95 GENERAL: The patient is awake, alert, and fully oriented, in no acute distress. NECK: supple. LUNGS: Breath sounds equal, clear to auscultation bilaterally, no wheezes, no crackles, no accessory muscle use. HEART: Regular rate and rhythm, S1, S2 without murmur, rub or gallop. ABDOMEN: Soft, nontender, globose EXTREMITIES: 2+ pulses, warm, well-perfused, 2+ pitting edema. NEUROLOGICAL: Normal speech, gait not observed. PSYCH: poor affect, reduced mental status, responsive to commands and questions but at reduced haste. SKIN: Warm, dry, no rashes or lesions noted Laboratory Results - last 24 hr 07/06/19 07/06/19 08:10 08:10 WBC 16.0 H RBC 2.26 L Hgb 8.1 L Hct 25.1 L MCV 110.9 H MCH 35.6 H MCHC 32.1 RDW 18.1 H Plt Count 375 MPV 8.1 Sodium 138 Potassium 3.4 L Chloride 100 Carbon Dioxide 30 Anion Gap 8 BUN 20.1 H Creatinine 0.7 Est GFR (CKD-EPI)AfAm 113.05 Est GFR (CKD-EPI)NonAf 97.54 Random Glucose 104 Calcium 7.9 L Magnesium 1.6 L Total Bilirubin 1.5 H AST 152 H ALT 27 Alkaline Phosphatase 279 H Total Protein 5.8 L Albumin 1.8 L Active Medications Generic Name Dose Route Start Last Admin Trade Name Freq PRN Reason Stop Dose Admin Albuterol Sulfate 1 amp 07/04/19 12:51 Ventolin 0.083% Nebulizer Soln - NEB Q4H PRN SHORT OF BREATH/WHEEZING Albuterol/Ipratropium 1 amp 07/04/19 16:00 07/06/19 15:54 Duoneb - NEB Not Given RQID RODRIGO Doxepin HCl 25 mg 07/04/19 22:00 07/05/19 21:39 Sinequan - PO 25 mg HS RODRIGO Administration Folic Acid 1 mg 07/03/19 10:45 07/06/19 09:18 Folic Acid - PO 1 mg DAILY RODRIGO Administration Furosemide 40 mg 07/03/19 10:45 07/06/19 09:18 Lasix Injection - IVPUSH 40 mg DAILY RODRIGO Administration Ceftriaxone Sodium 1 gm/ 50 mls @ 100 mls/hr 07/06/19 12:00 07/06/19 13:09 Dextrose IVPB 100 mls/hr DAILY RODRIGO Administration Protocol Lactulose 20 gm 07/03/19 14:15 07/06/19 09:18 Cephulac (Oral Use) PO 20 gm BID RODRIGO Administration Levothyroxine Sodium 50 mcg 07/04/19 10:00 07/06/19 06:21 Synthroid - PO 50 mcg 0700 RODRIGO Administration Nicotine 7 mg 07/03/19 22:49 07/06/19 09:18 Nicoderm Patch - TD 7 mg DAILY RODRIGO Administration Pantoprazole Sodium 40 mg 07/03/19 10:45 07/06/19 09:18 Protonix Iv IVPUSH 40 mg DAILY RODRIGO Administration Prednisone 60 mg 07/04/19 13:00 07/06/19 09:18 Deltasone - PO 60 mg DAILY RODRIGO Administration Propranolol HCl 10 mg 07/03/19 10:45 07/06/19 13:33 Inderal - PO Not Given TID RODRIGO Spironolactone 12.5 mg 07/03/19 10:45 07/06/19 09:18 Aldactone - PO 12.5 mg DAILY RODRIGO Administration Thiamine HCl 100 mg 07/03/19 10:45 07/06/19 09:19 Vitamin B1 - PO 100 mg DAILY RODRIGO Administration ASSESSMENT/PLAN: 54 y/o/f with PMHx significant for Alcoholic Cirrhosis, GERD, and hypothyroidism. She presented to the ER with complaints of worsening LE edema resulting in an inability to walk, SOB, abdominal bloating, and fatigue for the past 6 months. Admitted for management of alcoholic cirrhosis. #Alcoholic liver Cirrhosis - 2/2 alcohol abuse - Child Powell: Class C, 10 points, 82% scotty operative mortality - Maddrey's Discriminant Function: 15.8, suggesting no need for steroids - MELD 13 with 6% 3 month mortality - Manage ascites with Lasix 40mg IVP daily, 12.5 aldactone now, and propanolol 10TID for portal HTN reduction - Lactulose 20BID for HE mgmt, MRI triphasic abdomen for ?polyp in GB per GI - pt should follow up in liver transplant center. - aldactone 100 daily - GI consulted (Dr. Cantu) - EGD as o/p per GI. - Protonix 40 daily - SBP ruled out - Doppler lower extremity negative - Hepatitis C negative - B12 levels high which is not characteristic of alcoholic cirrhosis but was recently at [facility] and potentially received treatment there. Acute mental status changes - Neuro consulted (Dr. De Leon) - Head CT negative - ammonia level - hypoxia pulm consulted to keep SaO2 >90% - UA cx growing VR E Faecium - ID consulted (Dr. Pablo) - started on Ceftriaxone #Cardiac workup - no longer dyspneic - Echo- normal EF 60-65% no valvular abnormalities - Troponin negative x2 - EKG: no ST T wave changes - Lasix 40 IV daily #EtOH abuse - Ativan protocol completed - Thiamine PO given, avoiding fluids due to edema #Leukocytosis - WBC 16 - SBP ruled out - Urine cx positive - Blood cultures negative to date #Anemia - Hgb at 8.1 - Fe TIBC levels showing anemia of chronic dx - RBC smear ordered - May need transfusion if Hgb drops under 7 #FEN - Fluid restriction 1L per day - monitor and replete lytes as needed - 2g Salt restricted diet #DVT - SCDs #Disposition - Likely to need SNF on discharge, possible DC tomorrow Visit type - Emergency Visit Emergency Visit: Yes ED Registration Date: 07/03/19 Care time: The patient presented to the Emergency Department on the above date and was hospitalized for further evaluation of their emergent condition. - New Patient This patient is new to me today: No - Critical Care Critical Care patient: No ATTENDING PHYSICIAN STATEMENT I saw and evaluated the patient. I reviewed the resident's note and discussed the case with the resident. I agree with the resident's findings and plan as documented. SUBJECTIVE: OBJECTIVE: ASSESSMENT AND PLAN:
[2019-07-06] MEDS ORDERED: POTASSIUM CHLORIDE TABS 20 MEQ TABLET.ER (FP) PO ONE (17:14)
--- NOTE | 2019-07-06 17:33 | PN ---
Teaching Attending Note Name of Resident: Vicky Diaz ATTENDING PHYSICIAN STATEMENT I saw and evaluated the patient. I reviewed the resident's note and discussed the case with the resident. I agree with the resident's findings and plan as documented. Seen and examined; please see resident note for further historical information. I personally verified all cates historical information and exam findings. Personally interpreted all imaging and diagnostics and reviewed appropriate consults. I reviewed all labs and vital signs as per resident note and EMR as documented. I agree with the above assessment and plan unless supplemented by myself in the following. 10 item review of systems completed and is negative aside from as discussed in the subjective data in my own/the resident documentation. VS, labs, imaging reviewed NAD, AAO, resting comfortably in bed. RRR s1/2 no mgr Normal muscle tone, moves all 5 extremities with normal apparent strength Neck is supple, trachea midline, no evelin LN Lungs CTAB with sym expansion NT ND +BS no evelin organomegaly CN2-12 wnl; no FND NC AT EOMI PERRLA Normal mood, appropriate behavior, euthymic affect No skin breakdown or rashes noted Assessment and plan: Patient is a 54-year-old female who remains in her service with COPD exacerbation, improving altered mental status. Cardiology studies revealed normal LV and RV function,ID is following her for UTI with multidrug-resistant organism. Appreciate expert consultation. Remains on oral treatment for cirrhosis. Changing to PO meds for cirrhosis. Problem list: -AMS; less likely hepatic encephalopathy as no asterixis, negative NH4. Consider KWADWO, volitional component, endocrine/neuro abnl. Check TSH, etc. Consult neuro -MDRO UTI; ID following; c/w abx per their service -COPD exacerbation; PRN O2. BDs, steroids, Pulm consult. Incentive hammad and tobacco cessasion -Tobacco Abuse; NRT -EtOH Cirrhosis +/- etoh hepatitis (transaminitis appreciated); continue propranolol, lasix, spironolactone. 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
[2019-07-06] MEDS ORDERED: MAGNESIUM 4GM/H20 - 4 GM/100 ML IVPB IVPB ONE (17:35)
[2019-07-06] MEDS ORDERED: MAGNESIUM SULF 50% (8.12 MEQ/2 ML-1 GM VIAL) IVPB ONE (17:58)
[2019-07-06] MEDS ORDERED: PT OWN MED DRAWER 7, Y5N ONE (20:49)
[2019-07-06] MEDS: DOXEPIN HCL 25 MG CAPSULE PO SCH (21:03)
[2019-07-07] MEDS ORDERED: FUROSEMIDE 40 MG TABLET (FP) PO SCH (06:00)
[2019-07-07] MEDS: LEVOTHYROXINE NA 50 MCG TABLET (FP) PO SCH (06:06)
[2019-07-07] MEDS: ALBUTEROL SO4 2.5/IPRATROPIUM 0.5 INH SOL 3 ML VIAL.NEB. NEB SCH ×4 (07:20→19:54)
--- NOTE | 2019-07-07 08:45 | PN ---
Progress Note (short form) - Note Progress Note: Neurology CHIEF COMPLAINT: Worsening LE edema, SOB, abdominal bloating, and fatigue for the pat 6 months PCP: None HISTORY OF PRESENT ILLNESS: This is a 54 year old female with PMH significant for Alcoholic Cirrhosis, GERD , and hypothyroidism. She presented to the ER with complaints of worsening LE edema resulting in an inability to walk, SOB, abdominal bloating, and fatigue for the past 6 months. She has been hospitalized approximately 4 times over the past 6 months at [facility], and stated that she was diagnosed with liver cirrhosis. She has been drinking for several years (she is unable to quantify and stated that she has been drinking forever), and her last drink was Jun 13 2019. Before then, she would usually drink over 1 pint of vodka per day. She endorsed nausea, SOB, orthopnea, light headedness, but no vomiting, diarrhea, constipation, chest pain, abdominal pain, dysuria, urinary urgency, urinary frequency, or hematuria. She admited to multiple episodes of hemetemesis, but stated that she has not had any episodes in the past 6 months. Her SOB has been worsening progressively, and she admited to snoring as well as waking up at night with SOB. She has never been officialy diagnosed with apnea. She also stated that she has had multiple falls over the past few years due to being intoxicated, but reported no recent falls or head trauma. Her diet has been erratic, and she claims to have missed meals for up to 10 days at a time. She has attempted detox in the past, and was admitted at [facility] in 2015 for alcohol, cannabis, and cocaine use, although she denied any other drug use at this time. She smokes a 1/2 pack per day, down from 1.5 pack previously. She endorsed intermittent chills over the past few weeks, without any documented or subjective fevers. She also endorsed progressive worsening SOB and orthopnea. Lower extremities doppler reviewed and showed no evidence of deep venous thrombosis. I was consulted for mental status and on initial visit had difficulty but during my evaluation this morning she was able to tell me that she is at [facility] as well as the month and the correct year as well as the name of the president. cT head reviewed and discussed in detail and showed no significant structural abnormalities. I discussed with her that cognitive issues may be related to chronic alcohol use and she was in agreement with this as well. ID note eviewed and mention of leukocytosis, patient put on ceftriaxone. Active Medications Albuterol Sulfate (Ventolin 0.083% Nebulizer Soln -) 1 amp NEB Q4H PRN PRN Reason: SHORT OF BREATH/WHEEZING Albuterol/Ipratropium (Duoneb -) 1 amp NEB RQID [facility] Last Admin: 07/07/19 07:20 Dose: 1 amp Doxepin HCl (Sinequan -) 25 mg PO HS [facility] Last Admin: 07/06/19 21:03 Dose: 25 mg Folic Acid (Folic Acid -) 1 mg PO DAILY [facility] Last Admin: 07/06/19 09:18 Dose: 1 mg Furosemide (Lasix -) 40 mg PO DAILY [facility] Ceftriaxone Sodium 1 gm/ (Dextrose) 50 mls @ 100 mls/hr IVPB DAILY [facility]; Protocol Last Admin: 07/06/19 13:09 Dose: 100 mls/hr Lactulose (Cephulac (Oral Use)) 20 gm PO BID [facility] Last Admin: 07/06/19 21:03 Dose: 20 gm Levothyroxine Sodium (Synthroid -) 50 mcg PO 0700 [facility] Last Admin: 07/07/19 06:06 Dose: 50 mcg Nicotine (Nicoderm Patch -) 7 mg TD DAILY [facility] Last Admin: 07/06/19 09:18 Dose: 7 mg Pantoprazole Sodium (Protonix Iv) 40 mg IVPUSH DAILY [facility] Last Admin: 07/06/19 09:18 Dose: 40 mg Prednisone (Deltasone -) 60 mg PO DAILY [facility] Last Admin: 07/06/19 09:18 Dose: 60 mg Propranolol HCl (Inderal -) 10 mg PO TID [facility] Last Admin: 07/07/19 06:05 Dose: Not Given Spironolactone (Aldactone -) 25 mg PO DAILY [facility] Thiamine HCl (Vitamin B1 -) 100 mg PO DAILY [facility] Last Admin: 07/06/19 09:19 Dose: 100 mg PHYSICAL EXAMINATION Vital Signs Period Temp Pulse Resp BP Sys/Cortez Pulse Ox Last 24 Hr 98.0 F-98.0 F 71-89 20-20 92-101/52-61 92-96 GENERAL: AOx3, jaundiced HEAD: Normal with no signs of trauma. EYES: Pupils equal, round and reactive to light, extraocular movements intact, sclera icteric, conjunctiva clear. No lid lag. EARS, NOSE, THROAT: Ears normal, nares patent, oropharynx clear without exudates. Moist mucous membranes. NECK: Normal range of motion, supple without lymphadenopathy, JVD, or masses. LUNGS: Breath sounds equal, clear to auscultation bilaterally. No wheezes, and no crackles. No accessory muscle use. HEART: Regular rate and rhythm, systolic murmur 3/6 on RSB ABDOMEN: Soft, distended, non tender with fluid thrill UPPER EXTREMITIES: 2+ pulses, warm, well-perfused. No cyanosis. No clubbing. No peripheral edema. LOWER EXTREMITIES: B/L pitting edema 2+, no calf tenderness NEUROLOGICAL: Patient refused motor/sensory examination/ Tremor noticed when hands outstretched PSYCHIATRIC: Cooperative. Good eye contact. Appropriate mood and affect. SKIN: Warm, dry, normal turgor, no rashes or lesions noted, normal capillary refill. CBCD WBC 16.0 K/mm3 (4.0-10.0) H 07/06/19 08:10 RBC 2.26 M/mm3 (3.60-5.2) L 07/06/19 08:10 Hgb 8.1 GM/dL (10.7-15.3) L 07/06/19 08:10 Hct 25.1 % (32.4-45.2) L 07/06/19 08:10 MCV 110.9 fl (80-96) H 07/06/19 08:10 MCHC 32.1 g/dl (32.0-36.0) 07/06/19 08:10 RDW 18.1 % (11.6-15.6) H 07/06/19 08:10 Plt Count 375 K/MM3 (134-434) 07/06/19 08:10 MPV 8.1 fl (7.5-11.1) 07/06/19 08:10 CMP Sodium 138 mmol/L (136-145) 07/06/19 08:10 Potassium 3.4 mmol/L (3.5-5.1) L 07/06/19 08:10 Chloride 100 mmol/L (98-107) 07/06/19 08:10 Carbon Dioxide 30 mmol/L (21-32) 07/06/19 08:10 Anion Gap 8 MMOL/L (8-16) 07/06/19 08:10 BUN 20.1 mg/dL (7-18) H 07/06/19 08:10 Creatinine 0.7 mg/dL (0.55-1.3) 07/06/19 08:10 Random Glucose 104 mg/dL (74-106) 07/06/19 08:10 Calcium 7.9 mg/dL (8.5-10.1) L 07/06/19 08:10 Total Bilirubin 1.5 mg/dL (0.2-1) H 07/06/19 08:10 AST 152 U/L (15-37) H 07/06/19 08:10 ALT 27 U/L (13-61) 07/06/19 08:10 Alkaline Phosphatase 279 U/L (45-117) H 07/06/19 08:10 Total Protein 5.8 g/dl (6.4-8.2) L 07/06/19 08:10 Albumin 1.8 g/dl (3.4-5.0) L 07/06/19 08:10 CARDIAC ENZYMES Creatine Kinase 15 U/L (26-192) L 07/03/19 03:45 Troponin I < 0.02 ng/ml (0.00-0.05) 07/03/19 03:45 ASSESSMENT/PLAN: This is a 54 year old female with PMH significant for Alcoholic Cirrhosis, GERD , and hypothyroidism. She presented to the ER with complaints of worsening LE edema resulting in an inability to walk, SOB, abdominal bloating, and fatigue for the past 6 months. She has been hospitalized approximately 4 times over the past 6 months at [facility], and stated that she was diagnosed with liver cirrhosis. She has been drinking for several years (she is unable to quantify and stated that she has been drinking forever), and her last drink was Jun 13 2019. Before then, she would usually drink over 1 pint of vodka per day. She endorsed nausea, SOB, orthopnea, light headedness, but no vomiting, diarrhea, constipation, chest pain, abdominal pain, dysuria, urinary urgency, urinary frequency, or hematuria. She admited to multiple episodes of hemetemesis, but stated that she has not had any episodes in the past 6 months. Her SOB has been worsening progressively, and she admited to snoring as well as waking up at night with SOB. She has never been officialy diagnosed with apnea. She also stated that she has had multiple falls over the past few years due to being intoxicated, but reported no recent falls or head trauma.I was consulted for mental status and on initial visit had difficulty but during my evaluation this morning she was able to tell me that she is at [facility] as well as the month and the correct year as well as the name of the president. cT head reviewed and discussed in detail and showed no significant structural abnormalities. I discussed with her that cognitive issues may be related to chronic alcohol use and she was in agreement with this as well. ID note eviewed and mention of leukocytosis, patient put on ceftriaxone. Defer regarding Abx to ID/PCP. Mental status appears to have improved and likely near baseline at this point monitor thyroid levelas hypothyroidism can precipitate ccognitive impairment. Adequate hydration recommended, replenish electrotyles. Medical optimization. Alcohol cessation strongly recommended consider rehabilitation placement if needed.
[2019-07-07 08:55] LABS: HEMATOCRIT 26.9 % (32.4-45.2); HEMOGLOBIN 8.7 GM/dL (10.7-15.3); MCH 35.9 pg (25.7-33.7); MCHC 32.3 g/dl (32.0-36.0); MEAN CELL VOLUME 110.9 fl (80-96); PLATELET COUNT 394 K/MM3 (134-434); RBC 2.42 M/mm3 (3.60-5.2); RDW 17.8 % (11.6-15.6); WHITE BLOOD COUNT 15.6 K/mm3 (4.0-10.0)
[2019-07-07 09:24] LABS: ALBUMIN 1.9 g/dl (3.4-5.0); BILIRUBIN,TOTAL 1.5 mg/dL (0.2-1); CALCIUM 8.8 mg/dL (8.5-10.1); CREATININE 0.7 mg/dL (0.55-1.3); MAGNESIUM 2.4 mg/dL (1.8-2.4); POTASSIUM 3.5 mmol/L (3.5-5.1)
[2019-07-07] MEDS ORDERED: cefTRIAXone SODIUM 1 GM VIAL ONE (09:35)
[2019-07-07] MEDS ORDERED: DEXTROSE 5%-WATER - 50 ML IVPB ONE (09:36)
[2019-07-07] MEDS: SPIRONOLACTONE 25 MG TABLET (FP) PO SCH (09:40)
[2019-07-07] MEDS: THIAMINE HCL 100 MG TABLET (FP) PO SCH (09:40)
[2019-07-07] MEDS: predniSONE 20 MG TABLET (UD) PO SCH (09:40)
[2019-07-07] MEDS: FOLIC ACID 1 MG TABLET (FP) PO SCH (09:40)
[2019-07-07] MEDS: FUROSEMIDE 40 MG TABLET (FP) PO SCH (09:41)
[2019-07-07] MEDS: PANTOPRAZOLE SODIUM 40 MG VIAL IVPUSH SCH (09:41)
[2019-07-07] MEDS: NICOTINE 7 MG/24 HOURS TOPICAL PATCH TD SCH (09:41)
[2019-07-07] MEDS: LACTULOSE 20 GM/30 ML UDC (FOR ORAL USE ONLY) PO SCH ×2 (09:41→21:00)
[2019-07-07] MEDS: CEFTRIAXONE 1 GM in DEXTROSE 5%-WATER - 50 ML IVPB SCH (09:41)
--- NOTE | 2019-07-07 11:10 | PN ---
Progress Note, Physician History of Present Illness: stable no new issues - Current Medication List Current Medications: Active Medications Albuterol Sulfate (Ventolin 0.083% Nebulizer Soln -) 1 amp NEB Q4H PRN PRN Reason: SHORT OF BREATH/WHEEZING Albuterol/Ipratropium (Duoneb -) 1 amp NEB RQID [facility] Last Admin: 07/07/19 07:20 Dose: 1 amp Doxepin HCl (Sinequan -) 25 mg PO HS [facility] Last Admin: 07/06/19 21:03 Dose: 25 mg Folic Acid (Folic Acid -) 1 mg PO DAILY [facility] Last Admin: 07/07/19 09:40 Dose: 1 mg Furosemide (Lasix -) 40 mg PO DAILY [facility] Last Admin: 07/07/19 09:41 Dose: 40 mg Ceftriaxone Sodium 1 gm/ (Dextrose) 50 mls @ 100 mls/hr IVPB DAILY [facility]; Protocol Last Admin: 07/07/19 09:41 Dose: 100 mls/hr Lactulose (Cephulac (Oral Use)) 20 gm PO BID [facility] Last Admin: 07/07/19 09:41 Dose: 20 gm Levothyroxine Sodium (Synthroid -) 50 mcg PO 0700 [facility] Last Admin: 07/07/19 06:06 Dose: 50 mcg Nicotine (Nicoderm Patch -) 7 mg TD DAILY [facility] Last Admin: 07/07/19 09:41 Dose: 7 mg Pantoprazole Sodium (Protonix Iv) 40 mg IVPUSH DAILY [facility] Last Admin: 07/07/19 09:41 Dose: 40 mg Prednisone (Deltasone -) 60 mg PO DAILY [facility] Last Admin: 07/07/19 09:40 Dose: 60 mg Propranolol HCl (Inderal -) 10 mg PO TID [facility] Last Admin: 07/07/19 06:05 Dose: Not Given Spironolactone (Aldactone -) 25 mg PO DAILY [facility] Last Admin: 07/07/19 09:40 Dose: 25 mg Thiamine HCl (Vitamin B1 -) 100 mg PO DAILY [facility] Last Admin: 07/07/19 09:40 Dose: 100 mg - Objective Vital Signs: Vital Signs Temperature 98.0 F 07/07/19 05:45 Pulse Rate 77 07/07/19 05:45 Respiratory Rate 20 07/07/19 05:45 Blood Pressure 101/61 07/07/19 05:45 O2 Sat by Pulse Oximetry (%) 93 L 07/07/19 09:00 Constitutional: Yes: No Distress, Calm Cardiovascular: Yes: S1, S2 Gastrointestinal: Yes: Normal Bowel Sounds, Soft, Ascites, Other Musculoskeletal: Yes: WNL Extremities: Yes: WNL Neurological: Yes: Alert, Oriented Psychiatric: Yes: Alert, Oriented Labs: CBC, BMP 07/07/19 08:20 07/07/19 08:20 INR, PTT INR 1.34 (0.83-1.09) H 07/02/19 21:40 Assessment/Plan Problem List - Problems (1) COPD (chronic obstructive pulmonary disease) Code(s): J44.9 - CHRONIC OBSTRUCTIVE PULMONARY DISEASE, UNSPECIFIED (2) Alcoholic cirrhosis of liver with ascites Code(s): K70.31 - ALCOHOLIC CIRRHOSIS OF LIVER WITH ASCITES (3) Cannabis dependence Code(s): F12.20 - CANNABIS DEPENDENCE, UNCOMPLICATED (4) Cocaine dependence Code(s): F14.20 - COCAINE DEPENDENCE, UNCOMPLICATED leukocytosis plan if patient remains stable can stop abx
--- NOTE | 2019-07-07 11:54 | PN ---
Progress Note (short form) - Note Progress Note: PULMONARY Denies shortness of breath, cough or wheezing. Vital Signs Period Temp Pulse Resp BP Sys/Cortez Pulse Ox Last 24 Hr 98.0 F-98.0 F 71-89 20-20 92-101/52-61 92-96 Gen: NAD in chair Heart: RRR Lung: no wheezes appreciated Abd: soft, nontender Ext: no edema CBC, BMP 07/07/19 08:20 07/07/19 08:20 Active Medications Albuterol Sulfate (Ventolin 0.083% Nebulizer Soln -) 1 amp NEB Q4H PRN PRN Reason: SHORT OF BREATH/WHEEZING Albuterol/Ipratropium (Duoneb -) 1 amp NEB RQID [facility] Last Admin: 07/07/19 11:05 Dose: 1 amp Doxepin HCl (Sinequan -) 25 mg PO HS [facility] Last Admin: 07/06/19 21:03 Dose: 25 mg Folic Acid (Folic Acid -) 1 mg PO DAILY [facility] Last Admin: 07/07/19 09:40 Dose: 1 mg Furosemide (Lasix -) 40 mg PO DAILY [facility] Last Admin: 07/07/19 09:41 Dose: 40 mg Ceftriaxone Sodium 1 gm/ (Dextrose) 50 mls @ 100 mls/hr IVPB DAILY [facility]; Protocol Last Admin: 07/07/19 09:41 Dose: 100 mls/hr Lactulose (Cephulac (Oral Use)) 20 gm PO BID [facility] Last Admin: 07/07/19 09:41 Dose: 20 gm Levothyroxine Sodium (Synthroid -) 50 mcg PO 0700 [facility] Last Admin: 07/07/19 06:06 Dose: 50 mcg Nicotine (Nicoderm Patch -) 7 mg TD DAILY [facility] Last Admin: 07/07/19 09:41 Dose: 7 mg Pantoprazole Sodium (Protonix Iv) 40 mg IVPUSH DAILY [facility] Last Admin: 07/07/19 09:41 Dose: 40 mg Prednisone (Deltasone -) 60 mg PO DAILY [facility] Last Admin: 07/07/19 09:40 Dose: 60 mg Propranolol HCl (Inderal -) 10 mg PO TID [facility] Last Admin: 07/07/19 06:05 Dose: Not Given Spironolactone (Aldactone -) 25 mg PO DAILY [facility] Last Admin: 07/07/19 09:40 Dose: 25 mg Thiamine HCl (Vitamin B1 -) 100 mg PO DAILY [facility] Last Admin: 07/07/19 09:40 Dose: 100 mg A/P Altered Mental Status improved UTI Acute COPD Exacerbation Liver Cirrhosis Hypothyroidism Smoker - complete antibiotics - can complete 5 day course of prednisone - inhaled bronchodilators - smoking cessation - DVT prophylaxis
--- NOTE | 2019-07-07 13:26 | PN ---
Teaching Attending Note Name of Resident: Vicky Diaz ATTENDING PHYSICIAN STATEMENT I saw and evaluated the patient. I reviewed the resident's note and discussed the case with the resident. I agree with the resident's findings and plan as documented. Seen and examined; please see resident note for further historical information. I personally verified all cates historical information and exam findings. Personally interpreted all imaging and diagnostics and reviewed appropriate consults. I reviewed all labs and vital signs as per resident note and EMR as documented. I agree with the above assessment and plan unless supplemented by myself in the following. She is markedly improved today with no new complaints. She states she feels much stronger and wants to reattempt physical therapy. She has been walking around doing her insurance exercises. If she passes she will require placement. She is not withdrawing, mentating appropriately, not requiring oxygen. If she passes physical therapy likely can discharge home today antibiotic course is delineated with infectious disease 10 item review of systems completed and is negative aside from as discussed in the subjective data in my own/the resident documentation. VS, labs, imaging reviewed NAD, AAO, resting comfortably in bed.Much improved mentation and mental status baseline per patient RRR s1/2 no mgr Normal muscle tone, moves all 5 extremities with normal apparent strength Neck is supple, trachea midline, no evelin LN Lungs CTAB with sym expansion NT ND +BS no evelin organomegaly CN2-12 wnl; no FND NC AT EOMI PERRLA Normal mood, appropriate behavior, euthymic affect No skin breakdown or rashes noted Assessment and plan: Patient is improved, reassess with physical therapy and discussed with specialty consultants. If passes can likely be discharged Problem list: -AMS; less likely hepatic encephalopathy as no asterixis, negative NH4. Consider KWADWO, volitional component, endocrine/neuro abnl. Check TSH, etc. Consult neuro -MDRO UTI; ID following; c/w abx per their service -COPD exacerbation; PRN O2. BDs, steroids, Pulm consult. Incentive hammad and tobacco cessasion -Tobacco Abuse; NRT -EtOH Cirrhosis +/- etoh hepatitis (transaminitis appreciated); continue propranolol, lasix, spironolactone. -Obesity (BMI 31; education counselor prior to DC) -Likely underlying psych disorder Full code
[2019-07-07] MEDS ORDERED: PT OWN MED DRAWER 7, Y5N ONE ×2 (14:19→21:00)
--- NOTE | 2019-07-07 17:08 | PN ---
Physical Exam: SUBJECTIVE: Patient seen and examined. No acute events overnight. Patient denies chest pain, SOB, abd pain, fever, chills. OBJECTIVE: Vital Signs Period Temp Pulse Resp BP Sys/Cortez Pulse Ox Last 24 Hr 97.9 F-98.0 F 72-96 20-20 92-106/52-61 93-96 GENERAL: The patient is awake, alert, and fully oriented, in no acute distress. NECK: supple LUNGS: Breath sounds equal, clear to auscultation bilaterally, no wheezes, no crackles, no accessory muscle use. HEART: Regular rate and rhythm, S1, S2 without murmur, rub or gallop. ABDOMEN: Soft, nontender, globose EXTREMITIES: 2+ pulses, warm, well-perfused, 2+ pitting edema. NEUROLOGICAL: Normal speech, gait not observed. PSYCH: improved mental status, AAOx3 SKIN: Warm, dry, no rashes or lesions noted Laboratory Results - last 24 hr 07/07/19 07/07/19 07/07/19 08:20 08:20 08:20 WBC 15.6 H RBC 2.42 L Hgb 8.7 L Hct 26.9 L MCV 110.9 H MCH 35.9 H MCHC 32.3 RDW 17.8 H Plt Count 394 MPV 8.0 ESR 102 H Sodium 139 Potassium 3.5 Chloride 100 Carbon Dioxide 31 Anion Gap 8 BUN 15.0 Creatinine 0.7 Est GFR (CKD-EPI)AfAm 113.05 Est GFR (CKD-EPI)NonAf 97.54 Random Glucose 84 Calcium 8.8 Magnesium 2.4 Total Bilirubin 1.5 H AST 368 H ALT 48 Alkaline Phosphatase 315 H C-Reactive Protein 3.7 H Total Protein 6.0 L Albumin 1.9 L Active Medications Generic Name Dose Route Start Last Admin Trade Name Freq PRN Reason Stop Dose Admin Albuterol Sulfate 1 amp 07/04/19 12:51 Ventolin 0.083% Nebulizer Soln - NEB Q4H PRN SHORT OF BREATH/WHEEZING Albuterol/Ipratropium 1 amp 07/04/19 16:00 07/07/19 16:49 Duoneb - NEB 1 amp RQID [facility] Administration Doxepin HCl 25 mg 07/04/19 22:00 07/06/19 21:03 Sinequan - PO 25 mg HS [facility] Administration Folic Acid 1 mg 07/03/19 10:45 07/07/19 09:40 Folic Acid - PO 1 mg DAILY [facility] Administration Furosemide 40 mg 07/07/19 10:00 07/07/19 09:41 Lasix - PO 40 mg DAILY [facility] Administration Ceftriaxone Sodium 1 gm/ 50 mls @ 100 mls/hr 07/06/19 12:00 07/07/19 09:41 Dextrose IVPB 100 mls/hr DAILY [facility] Administration Protocol Lactulose 20 gm 07/03/19 14:15 07/07/19 09:41 Cephulac (Oral Use) PO 20 gm BID [facility] Administration Levothyroxine Sodium 50 mcg 07/04/19 10:00 07/07/19 06:06 Synthroid - PO 50 mcg 0700 [facility] Administration Nicotine 7 mg 07/03/19 22:49 07/07/19 09:41 Nicoderm Patch - TD 7 mg DAILY [facility] Administration Pantoprazole Sodium 40 mg 07/03/19 10:45 07/07/19 09:41 Protonix Iv IVPUSH 40 mg DAILY [facility] Administration Prednisone 60 mg 07/04/19 13:00 07/07/19 09:40 Deltasone - PO 60 mg DAILY [facility] Administration Propranolol HCl 10 mg 07/03/19 10:45 07/07/19 14:52 Inderal - PO Not Given TID [facility] Spironolactone 25 mg 07/06/19 17:38 07/07/19 09:40 Aldactone - PO 25 mg DAILY [facility] Administration Thiamine HCl 100 mg 07/03/19 10:45 07/07/19 09:40 Vitamin B1 - PO 100 mg DAILY [facility] Administration ASSESSMENT/PLAN: 54 y/o/f with PMHx significant for Alcoholic Cirrhosis, GERD, and hypothyroidism. She presented to the ER with complaints of worsening LE edema resulting in an inability to walk, SOB, abdominal bloating, and fatigue for the past 6 months. Admitted for management of alcoholic cirrhosis. #Alcoholic liver Cirrhosis - 2/2 alcohol abuse - Child Powell: Class C, 10 points, 82% scotty operative mortality - Maddrey's Discriminant Function: 15.8, suggesting no need for steroids - MELD 13 with 6% 3 month mortality - Manage ascites with Lasix 40mg PO daily, 25 aldactone now, and propanolol 10TID for portal HTN reduction - Lactulose 20BID for HE mgmt, MRI triphasic abdomen for ?polyp in GB per GI - pt should follow up in liver transplant center. - aldactone 100 daily - GI consulted (Dr. Cantu) - EGD as o/p per GI. - Protonix 40 daily - SBP ruled out - Doppler lower extremity negative - Hepatitis C negative Acute mental status changes - Neuro consulted (Dr. De Leon) - Head CT negative - hypoxia pulm consulted to keep SaO2 >90% - UA cx growing VR E Faecium - ID consulted (Dr. Pablo) - abx can be discontinued as patient is stable - mental status improved now #Cardiac workup - no longer dyspneic - Echo - normal EF 60-65% no valvular abnormalities - Troponin negative x2 - EKG: no ST T wave changes - Lasix 40 po daily #EtOH abuse - Ativan protocol completed - Thiamine PO given, avoiding fluids due to edema #Leukocytosis - WBC improving - SBP ruled out - Urine cx positive - Blood cultures negative to date #Anemia - Fe TIBC levels showing anemia of chronic dx - RBC smear ordered - May need transfusion if Hgb drops under 7 #FEN - Fluid restriction 1L per day - monitor and replete lytes as needed - 2g Salt restricted diet #DVT - SCDs #Disposition - D/C home, failed pre/post. Will need O2 on discharge Visit type - Emergency Visit Emergency Visit: Yes ED Registration Date: 07/03/19 Care time: The patient presented to the Emergency Department on the above date and was hospitalized for further evaluation of their emergent condition. - New Patient This patient is new to me today: No - Critical Care Critical Care patient: No ATTENDING PHYSICIAN STATEMENT I saw and evaluated the patient. I reviewed the resident's note and discussed the case with the resident. I agree with the resident's findings and plan as documented. SUBJECTIVE: OBJECTIVE: ASSESSMENT AND PLAN:
[2019-07-07] MEDS: DOXEPIN HCL 25 MG CAPSULE PO SCH (21:00)
[2019-07-08] MEDS ORDERED: PT OWN MED DRAWER 7, Y5N ONE ×2 (05:19→14:13)
[2019-07-08] MEDS: LEVOTHYROXINE NA 50 MCG TABLET (FP) PO SCH (07:24)
[2019-07-08] MEDS: ALBUTEROL SO4 2.5/IPRATROPIUM 0.5 INH SOL 3 ML VIAL.NEB. NEB SCH ×3 (07:50→17:02)
--- NOTE | 2019-07-08 08:52 | PN ---
Progress Note (short form) - Note Progress Note: Neurology CHIEF COMPLAINT: Worsening LE edema, SOB, abdominal bloating, and fatigue for the pat 6 months PCP: None HISTORY OF PRESENT ILLNESS: This is a 54 year old female with PMH significant for Alcoholic Cirrhosis, GERD , and hypothyroidism. She presented to the ER with complaints of worsening LE edema resulting in an inability to walk, SOB, abdominal bloating, and fatigue for the past 6 months. She has been hospitalized approximately 4 times over the past 6 months at [facility], and stated that she was diagnosed with liver cirrhosis. She has been drinking for several years (she is unable to quantify and stated that she has been drinking forever), and her last drink was Jun 13 2019. Before then, she would usually drink over 1 pint of vodka per day. She endorsed nausea, SOB, orthopnea, light headedness, but no vomiting, diarrhea, constipation, chest pain, abdominal pain, dysuria, urinary urgency, urinary frequency, or hematuria. She admited to multiple episodes of hemetemesis, but stated that she has not had any episodes in the past 6 months. Her SOB has been worsening progressively, and she admited to snoring as well as waking up at night with SOB. She has never been officialy diagnosed with apnea. She also stated that she has had multiple falls over the past few years due to being intoxicated, but reported no recent falls or head trauma. Her diet has been erratic, and she claims to have missed meals for up to 10 days at a time. She has attempted detox in the past, and was admitted at [facility] in 2015 for alcohol, cannabis, and cocaine use, although she denied any other drug use at this time. She smokes a 1/2 pack per day, down from 1.5 pack previously. She endorsed intermittent chills over the past few weeks, without any documented or subjective fevers. She also endorsed progressive worsening SOB and orthopnea. Lower extremities doppler reviewed and showed no evidence of deep venous thrombosis. I was consulted for mental status and on initial visit had difficulty but during my evaluation this morning she was able to tell me that she is at [facility] as well as the month and the correct year as well as the name of the president. cT head reviewed and discussed in detail and showed no significant structural abnormalities. I discussed with her that cognitive issues may be related to chronic alcohol use and she was in agreement with this as well. ID note eviewed and mention of leukocytosis, patient put on ceftriaxone. Per notes, EGD to be done as outpaitent. Remains on Aldactone. Patient inquiring about discharge. Active Medications Albuterol Sulfate (Ventolin 0.083% Nebulizer Soln -) 1 amp NEB Q4H PRN PRN Reason: SHORT OF BREATH/WHEEZING Albuterol/Ipratropium (Duoneb -) 1 amp NEB RQID [facility] Last Admin: 07/07/19 19:54 Dose: 1 amp Doxepin HCl (Sinequan -) 25 mg PO HS [facility] Last Admin: 07/07/19 21:00 Dose: 25 mg Folic Acid (Folic Acid -) 1 mg PO DAILY [facility] Last Admin: 07/07/19 09:40 Dose: 1 mg Furosemide (Lasix -) 40 mg PO DAILY [facility] Last Admin: 07/07/19 09:41 Dose: 40 mg Lactulose (Cephulac (Oral Use)) 20 gm PO BID [facility] Last Admin: 07/07/19 21:00 Dose: 20 gm Levothyroxine Sodium (Synthroid -) 50 mcg PO 0700 [facility] Last Admin: 07/08/19 07:24 Dose: 50 mcg Nicotine (Nicoderm Patch -) 7 mg TD DAILY [facility] Last Admin: 07/07/19 09:41 Dose: 7 mg Pantoprazole Sodium (Protonix Iv) 40 mg IVPUSH DAILY [facility] Last Admin: 07/07/19 09:41 Dose: 40 mg Prednisone (Deltasone -) 60 mg PO DAILY [facility] Last Admin: 07/07/19 09:40 Dose: 60 mg Propranolol HCl (Inderal -) 10 mg PO TID [facility] Last Admin: 07/08/19 05:26 Dose: 10 mg Spironolactone (Aldactone -) 25 mg PO DAILY [facility] Last Admin: 07/07/19 09:40 Dose: 25 mg Thiamine HCl (Vitamin B1 -) 100 mg PO DAILY [facility] Last Admin: 07/07/19 09:40 Dose: 100 mg PHYSICAL EXAMINATION Vital Signs Period Temp Pulse Resp BP Sys/Cortez Pulse Ox Last 24 Hr 97.2 F-98.0 F 72-96 18-20 98-106/51-59 93-94 GENERAL: AOx3, jaundiced HEAD: Normal with no signs of trauma. EYES: Pupils equal, round and reactive to light, extraocular movements intact, sclera icteric, conjunctiva clear. No lid lag. EARS, NOSE, THROAT: Ears normal, nares patent, oropharynx clear without exudates. Moist mucous membranes. NECK: Normal range of motion, supple without lymphadenopathy, JVD, or masses. LUNGS: Breath sounds equal, clear to auscultation bilaterally. No wheezes, and no crackles. No accessory muscle use. HEART: Regular rate and rhythm, systolic murmur 3/6 on RSB ABDOMEN: Soft, distended, non tender with fluid thrill UPPER EXTREMITIES: 2+ pulses, warm, well-perfused. No cyanosis. No clubbing. No peripheral edema. LOWER EXTREMITIES: B/L pitting edema 2+, no calf tenderness NEUROLOGICAL: Patient refused motor/sensory examination/ Tremor noticed when hands outstretched PSYCHIATRIC: Cooperative. Good eye contact. Appropriate mood and affect. SKIN: Warm, dry, normal turgor, no rashes or lesions noted, normal capillary refill. CBCD WBC 15.6 K/mm3 (4.0-10.0) H 07/07/19 08:20 RBC 2.42 M/mm3 (3.60-5.2) L 07/07/19 08:20 Hgb 8.7 GM/dL (10.7-15.3) L 07/07/19 08:20 Hct 26.9 % (32.4-45.2) L 07/07/19 08:20 MCV 110.9 fl (80-96) H 07/07/19 08:20 MCHC 32.3 g/dl (32.0-36.0) 07/07/19 08:20 RDW 17.8 % (11.6-15.6) H 07/07/19 08:20 Plt Count 394 K/MM3 (134-434) 07/07/19 08:20 MPV 8.0 fl (7.5-11.1) 07/07/19 08:20 CMP Sodium 139 mmol/L (136-145) 07/07/19 08:20 Potassium 3.5 mmol/L (3.5-5.1) 07/07/19 08:20 Chloride 100 mmol/L (98-107) 07/07/19 08:20 Carbon Dioxide 31 mmol/L (21-32) 07/07/19 08:20 Anion Gap 8 MMOL/L (8-16) 07/07/19 08:20 BUN 15.0 mg/dL (7-18) 07/07/19 08:20 Creatinine 0.7 mg/dL (0.55-1.3) 07/07/19 08:20 Random Glucose 84 mg/dL (74-106) 07/07/19 08:20 Calcium 8.8 mg/dL (8.5-10.1) 07/07/19 08:20 Total Bilirubin 1.5 mg/dL (0.2-1) H 07/07/19 08:20 AST 368 U/L (15-37) H 07/07/19 08:20 ALT 48 U/L (13-61) 07/07/19 08:20 Alkaline Phosphatase 315 U/L (45-117) H 07/07/19 08:20 Total Protein 6.0 g/dl (6.4-8.2) L 07/07/19 08:20 Albumin 1.9 g/dl (3.4-5.0) L 07/07/19 08:20 CARDIAC ENZYMES Creatine Kinase 15 U/L (26-192) L 07/03/19 03:45 Troponin I < 0.02 ng/ml (0.00-0.05) 07/03/19 03:45 ASSESSMENT/PLAN: This is a 54 year old female with PMH significant for Alcoholic Cirrhosis, GERD , and hypothyroidism. She presented to the ER with complaints of worsening LE edema resulting in an inability to walk, SOB, abdominal bloating, and fatigue for the past 6 months. She has been hospitalized approximately 4 times over the past 6 months at [facility], and stated that she was diagnosed with liver cirrhosis. She has been drinking for several years (she is unable to quantify and stated that she has been drinking forever), and her last drink was Jun 13 2019. Before then, she would usually drink over 1 pint of vodka per day. She endorsed nausea, SOB, orthopnea, light headedness, but no vomiting, diarrhea, constipation, chest pain, abdominal pain, dysuria, urinary urgency, urinary frequency, or hematuria. She admited to multiple episodes of hemetemesis, but stated that she has not had any episodes in the past 6 months. Her SOB has been worsening progressively, and she admited to snoring as well as waking up at night with SOB. She has never been officialy diagnosed with apnea. She also stated that she has had multiple falls over the past few years due to being intoxicated, but reported no recent falls or head trauma.I was consulted for mental status and on initial visit had difficulty but during my evaluation this morning she was able to tell me that she is at [facility] as well as the month and the correct year as well as the name of the president. cT head reviewed and discussed in detail and showed no significant structural abnormalities. I discussed with her that cognitive issues may be related to chronic alcohol use and she was in agreement with this as well. ID note eviewed and mention of leukocytosis, patient put on ceftriaxone. Defer regarding Abx to ID/PCP. Mental status appears to have improved and likely near baseline at this point monitor thyroid levelas hypothyroidism can precipitate ccognitive impairment. Adequate hydration recommended, replenish electrotyles. Medical optimization. Alcohol cessation strongly recommended consider rehabilitation placement if needed. Per notes, EGD to be done as outpaitent. Remains on Aldactone. Patient inquiring about discharge.
[2019-07-08] MEDS: FOLIC ACID 1 MG TABLET (FP) PO SCH (10:41)
[2019-07-08] MEDS: SPIRONOLACTONE 25 MG TABLET (FP) PO SCH (10:41)
[2019-07-08] MEDS: predniSONE 20 MG TABLET (UD) PO SCH (10:41)
[2019-07-08] MEDS: FUROSEMIDE 40 MG TABLET (FP) PO SCH (10:41)
[2019-07-08] MEDS: PANTOPRAZOLE SODIUM 40 MG VIAL IVPUSH SCH (10:41)
[2019-07-08] MEDS: NICOTINE 7 MG/24 HOURS TOPICAL PATCH TD SCH (10:42)
[2019-07-08] MEDS: LACTULOSE 20 GM/30 ML UDC (FOR ORAL USE ONLY) PO SCH (10:42)
[2019-07-08] MEDS: THIAMINE HCL 100 MG TABLET (FP) PO SCH (10:50)
--- NOTE | 2019-07-08 11:58 | PN ---
Progress Note, Physician History of Present Illness: stable no new issues - Current Medication List Current Medications: Active Medications Albuterol Sulfate (Ventolin 0.083% Nebulizer Soln -) 1 amp NEB Q4H PRN PRN Reason: SHORT OF BREATH/WHEEZING Albuterol/Ipratropium (Duoneb -) 1 amp NEB RQID [facility] Last Admin: 07/08/19 07:50 Dose: 1 amp Doxepin HCl (Sinequan -) 25 mg PO HS [facility] Last Admin: 07/07/19 21:00 Dose: 25 mg Folic Acid (Folic Acid -) 1 mg PO DAILY [facility] Last Admin: 07/08/19 10:41 Dose: 1 mg Furosemide (Lasix -) 40 mg PO DAILY [facility] Last Admin: 07/08/19 10:41 Dose: 40 mg Lactulose (Cephulac (Oral Use)) 20 gm PO BID [facility] Last Admin: 07/08/19 10:42 Dose: 20 gm Levothyroxine Sodium (Synthroid -) 50 mcg PO 0700 [facility] Last Admin: 07/08/19 07:24 Dose: 50 mcg Nicotine (Nicoderm Patch -) 7 mg TD DAILY [facility] Last Admin: 07/08/19 10:42 Dose: 7 mg Pantoprazole Sodium (Protonix Iv) 40 mg IVPUSH DAILY [facility] Last Admin: 07/08/19 10:41 Dose: 40 mg Prednisone (Deltasone -) 60 mg PO DAILY [facility] Last Admin: 07/08/19 10:41 Dose: 60 mg Propranolol HCl (Inderal -) 10 mg PO TID [facility] Last Admin: 07/08/19 05:26 Dose: 10 mg Spironolactone (Aldactone -) 25 mg PO DAILY [facility] Last Admin: 07/08/19 10:41 Dose: 25 mg Thiamine HCl (Vitamin B1 -) 100 mg PO DAILY [facility] Last Admin: 07/08/19 10:50 Dose: Not Given - Objective Vital Signs: Vital Signs Temperature 98.2 F 07/08/19 09:00 Pulse Rate 71 07/08/19 09:00 Respiratory Rate 20 07/08/19 09:00 Blood Pressure 100/51 L 07/08/19 09:00 O2 Sat by Pulse Oximetry (%) 94 L 07/07/19 21:00 Constitutional: Yes: No Distress, Calm Cardiovascular: Yes: S1, S2 Respiratory: Yes: Regular, CTA Bilaterally Gastrointestinal: Yes: Normal Bowel Sounds, Soft, Ascites Musculoskeletal: Yes: WNL Extremities: Yes: WNL Neurological: Yes: Alert, Oriented Psychiatric: Yes: Alert, Oriented Labs: CBC, BMP 07/07/19 08:20 07/07/19 08:20 INR, PTT INR 1.34 (0.83-1.09) H 07/02/19 21:40 Assessment/Plan Problem List - Problems (1) COPD (chronic obstructive pulmonary disease) Code(s): J44.9 - CHRONIC OBSTRUCTIVE PULMONARY DISEASE, UNSPECIFIED (2) Alcoholic cirrhosis of liver with ascites Code(s): K70.31 - ALCOHOLIC CIRRHOSIS OF LIVER WITH ASCITES (3) Cannabis dependence Code(s): F12.20 - CANNABIS DEPENDENCE, UNCOMPLICATED (4) Cocaine dependence Code(s): F14.20 - COCAINE DEPENDENCE, UNCOMPLICATED leukocytosis plan oxygen support rest as per the team
--- NOTE | 2019-07-08 12:23 | PN ---
Progress Note (short form) - Note Progress Note: PULMONARY Denies shortness of breath, cough or wheezing. Vital Signs Period Temp Pulse Resp BP Sys/Cortez Pulse Ox Last 24 Hr 97.2 F-98.2 F 71-96 18-20 98-106/51-59 93-94 Gen: NAD in chair Heart: RRR Lung: no wheezes appreciated Abd: soft, nontender Ext: no edema CBC, BMP 07/07/19 08:20 07/07/19 08:20 Active Medications Albuterol Sulfate (Ventolin 0.083% Nebulizer Soln -) 1 amp NEB Q4H PRN PRN Reason: SHORT OF BREATH/WHEEZING Albuterol/Ipratropium (Duoneb -) 1 amp NEB RQID [facility] Last Admin: 07/08/19 07:50 Dose: 1 amp Doxepin HCl (Sinequan -) 25 mg PO HS [facility] Last Admin: 07/07/19 21:00 Dose: 25 mg Folic Acid (Folic Acid -) 1 mg PO DAILY [facility] Last Admin: 07/08/19 10:41 Dose: 1 mg Furosemide (Lasix -) 40 mg PO DAILY [facility] Last Admin: 07/08/19 10:41 Dose: 40 mg Lactulose (Cephulac (Oral Use)) 20 gm PO BID [facility] Last Admin: 07/08/19 10:42 Dose: 20 gm Levothyroxine Sodium (Synthroid -) 50 mcg PO 0700 [facility] Last Admin: 07/08/19 07:24 Dose: 50 mcg Nicotine (Nicoderm Patch -) 7 mg TD DAILY [facility] Last Admin: 07/08/19 10:42 Dose: 7 mg Pantoprazole Sodium (Protonix Iv) 40 mg IVPUSH DAILY [facility] Last Admin: 07/08/19 10:41 Dose: 40 mg Prednisone (Deltasone -) 60 mg PO DAILY [facility] Last Admin: 07/08/19 10:41 Dose: 60 mg Propranolol HCl (Inderal -) 10 mg PO TID [facility] Last Admin: 07/08/19 05:26 Dose: 10 mg Spironolactone (Aldactone -) 25 mg PO DAILY [facility] Last Admin: 07/08/19 10:41 Dose: 25 mg Thiamine HCl (Vitamin B1 -) 100 mg PO DAILY [facility] Last Admin: 07/08/19 10:50 Dose: Not Given A/P Altered Mental Status improved UTI Acute COPD Exacerbation Likely Chronic Hypoxic Respiratory Failure Liver Cirrhosis Hypothyroidism Smoker - completed antibiotics - started prednisone on 07/04, can complete 5 day course of prednisone - inhaled bronchodilators - smoking cessation - DVT prophylaxis
[2019-07-08 14:51] VITALS: BP 94/45; PULSE 74; TEMP 98.4
--- NOTE | 2019-07-08 16:25 | PN ---
Teaching Attending Note Name of Resident: Isac Rodriguez ATTENDING PHYSICIAN STATEMENT I saw and evaluated the patient. I reviewed the resident's note and discussed the case with the resident. I agree with the resident's findings and plan as documented. SUBJECTIVE: Feeling much better, no ongoing complaints. tlerating oral intake. No abdominal pain/nausea/vomiting. No fever/chills. No dysuria/hematuria. OBJECTIVE: Afebrile, hemodynamically stable. Last Vital Signs Temp Pulse Resp BP Pulse Ox 98.4 F 74 20 94/45 L 94 L 07/08/19 14:49 07/08/19 14:49 07/08/19 14:49 07/08/19 14:49 07/08/19 09:00 HEENT - Atraumatic, normocephalic. Heart - S1, S2 RRR Lungs - good air entry, decreased at bases Abdomen - mild distension, soft, non-tender. Paracentesis site clean. Extremities - trace edema, no calf tenderness. Current Medications Generic Name Dose Route Start Last Admin Trade Name Freq PRN Reason Stop Dose Admin Albuterol Sulfate 1 amp 07/04/19 12:51 Ventolin 0.083% Nebulizer Soln - NEB Q4H PRN SHORT OF BREATH/WHEEZING Albuterol/Ipratropium 1 amp 07/04/19 16:00 07/08/19 13:25 Duoneb - NEB 1 amp RQID RODRIGO Administration Doxepin HCl 25 mg 07/04/19 22:00 07/07/19 21:00 Sinequan - PO 25 mg HS RODRIGO Administration Folic Acid 1 mg 07/03/19 10:45 07/08/19 10:41 Folic Acid - PO 1 mg DAILY RODRIGO Administration Furosemide 40 mg 07/07/19 10:00 07/08/19 10:41 Lasix - PO 40 mg DAILY RODRIGO Administration Lactulose 20 gm 07/03/19 14:15 07/08/19 10:42 Cephulac (Oral Use) PO 20 gm BID RODRIGO Administration Levothyroxine Sodium 50 mcg 07/04/19 10:00 07/08/19 07:24 Synthroid - PO 50 mcg 0700 RODRIGO Administration Nicotine 7 mg 07/03/19 22:49 07/08/19 10:42 Nicoderm Patch - TD 7 mg DAILY RODRIGO Administration Pantoprazole Sodium 40 mg 07/03/19 10:45 07/08/19 10:41 Protonix Iv IVPUSH 40 mg DAILY RODRIGO Administration Prednisone 60 mg 07/04/19 13:00 07/08/19 10:41 Deltasone - PO 60 mg DAILY RODRIGO Administration Propranolol HCl 10 mg 07/03/19 10:45 07/08/19 14:09 Inderal - PO 10 mg TID RODRIGO Administration Spironolactone 25 mg 07/06/19 17:38 07/08/19 10:41 Aldactone - PO 25 mg DAILY RODRIGO Administration Thiamine HCl 100 mg 07/03/19 10:45 07/08/19 10:50 Vitamin B1 - PO Not Given DAILY [facility] Discharge Medications Medication Instructions Recorded Doxepin HCl [Sinequan -] 25 mg PO DAILY 07/03/19 Folic Acid - 1 mg PO DAILY 07/03/19 Levothyroxine [Synthroid -] 50 mcg PO DAILY 07/03/19 Albuterol Sulfate Inhaler - 2 inh PO Q4H PRN #1 inh 07/08/19 [Ventolin HFA Inhaler -] Furosemide [Lasix] 40 mg PO DAILY #30 tablet 07/08/19 Lactulose [Kristalose] 20 gm PO BID PRN #30 packet 07/08/19 Nicotine Patch [Nicoderm Patch -] 1 patch TD DAILY #30 patch 07/08/19 Spironolactone [Aldactone] 25 mg PO DAILY #30 tablet 07/08/19 Thiamine HCl [Vitamin B-1] 100 mg PO DAILY #30 tablet 07/08/19 ASSESSMENT AND PLAN: 54 year old female with Hypothyroidism, Liver Cirrhosis, Alcohol Abuse, presents with worsening LE edema, fatigue, poor mobility, shortness of breath found to bealtered with lethargy and malaise. 1. Acute Hepatic Encephalopathy - resolved Lactulose BID PRN to maintain 3-4 soft bowel movements daily. 2. Anasarca secondary to Liver Cirrhosis/Hypoalbuminemia s/p paracentesis - neg for SBP Started on Lasix/Spironolactone. Outpatient renal function/electrolyte check GI follow up for EGD/Colonoscopy 3. Acute on Chronic Exacerbation COPD with likely progressive underlying chronic resp failure due to COPD requiring O2. Acute exacerbation resolved but needs home O2. Completed Steroid 5 day course, Bronchodilator Nebs. Albuterol PRN. PFTs and Pulmonary follow up as out-patient. 4. Polypoid GB lesion vs GB sludge on imaging Asymptomatic. MRI and GI follow up as out-patient. Repeat LFTs as out-patient 5. Macrocytic Anemia - multifactorial - primarily sec to Cirrhosis/Alcohol excess + chronic disease. No evidence of acute blood loss. 6. Leukocytosis sec to Steroid. No evidence of active infection. Paracentesis neg for SBP Urine Cx < 100,000 CFU/ml No need for further Abx. Medically stable for discharge with GI follow up for repeat LFTs/MRI/EGD/ Colonoscopy.
[2019-07-09] MEDS ORDERED: FOLIC ACID 1 MG TABLET (FP) PO SCH (10:00)
== END 2019-07-08 17:41 | disposition home or self-care (01) | DRG 432 ==
LOC: JER 21:01 → JERBED 07-03 01:03 → OBSVTOIN 07-03 02:17 → J6S 07-03 02:46
PROVIDERS: ADMIT Internal Medicine
DX: K70.31 Alcoholic cirrhosis of liver with ascites (principal); K72.00 Acute and subacute hepatic failure without coma; J44.1 Chronic obstructive pulmonary disease with (acute) exacerbation; N39.0 Urinary tract infection, site not specified; J96.11 Chronic respiratory failure with hypoxia; F14.20 Cocaine dependence, uncomplicated; K21.9 Gastro-esophageal reflux disease without esophagitis; E03.9 Hypothyroidism, unspecified; G47.30 Sleep apnea, unspecified; D72.829 Elevated white blood cell count, unspecified; D64.9 Anemia, unspecified; R41.82 Altered mental status, unspecified; F12.20 Cannabis dependence, uncomplicated; F17.210 Nicotine dependence, cigarettes, uncomplicated; F10.20 Alcohol dependence, uncomplicated
CPT/HCPCS: 36415; 36600; 70450-TC; 71046-TC-FY; 76705-TC; 76942-TC; 80053; 80076; 80307; 81003; 82042; 82140; 82150; 82272; 82550; 82607; 82803; 82945; 83540; 83550; 83615; 83735; 83880; 83986; 84134; 84157; 84484; 85025; 85027; 85044; 85610; 85651; 86140; 86803; 87040; 87070; 87075; 87086; 87102; 87116; 87186; 87205; 87206; 87210; 88108; 88305-TC; 93005; 93010; 93306-TC; 93970-TC; 94640; 94761; 97116-GP; 97162-GP; 99284-25; G0378; J0878